=== PATIENT | female | born 1970 | race Caucasian/White ===

== ENCOUNTER 2017-07-15 14:04 | Emergency (ER) | payer MEDICAID ==
[~2017-07-15] VITALS: Ht 170.2 cm; Wt 121.6 kg
--- OUTSIDE RECORDS SUMMARY | ~2017-07-15 | XMS | Clinical Summary ---
Demographics + + + | Address | [address] | | | [place] [address] | + + + | Home Phone [...] + | KRANTHI MONTEJO | ECON | [address] | | | | | [address], | | | | | [place] [address] | | + + + + + Care Team Providers + +------+ + | Care Special Officer Automat Name | Role | Phone | + +------+ + | Fior Arreola PA-C | PP | | + +------+ + Source Comments MANJUL[facility] Allergies + + + + + + [...] Patient ID: Stephany Sanchez 1970Care Plan Updated: 7-6-20Mxxoek: Winnie Morales, | | RNTotal Time of Visit:PCP: Saul Kelly, JACK MORALES, RNJULISA | | YANDEL WEBB MDBASSEL BEITINJANEH, GENO BROWN, AN[facility]BEBETHESDA [facility] | | GENO CEBALLOS, GENO KAPLAN, ANPDR | | URIEL [facility] Care Management Diagnosis: Care CoordinationPatient [...] Eff To | | Jessica Status 1 BARREL CAP SETTER MEDIC*/BARREL CAP SETTER PACIF* STEPHANY SANCHEZ Verified Patient is | [...] | as advised by her therapist at [facility] feels this is helping with her depression [...] resources | | 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 Care | | plan updated and reviewed with pt and PCP. Utilization: High ED utilization throughout | | the [facility] Psychosocial Needs: Patient lives with her partner of 17 years | | [place]. Pt travels with her partner throughout | [...] we are still waiting for | | [employer] to fund Vegi Vouchers but we [...] will work on having Vegi vouchers at [facility] with Fior on 01-22-17 and pt | [...] Andrew rncm09-23-16 T/C 07-20-16 1. T/C to [facility] and [facility] advises that | | [...] continue to pend | | but that [facility] has reassured me that they are close [...] when she and her will be in [place] working, refuses | | referral to Endocrinology. [...] CFL and PCP regularly Pt scheduled with [facility] Pulmonology 03-17-16 @ | | 11:11pu07-3-74: Pt scheduled with [facility] 04-23-16 @10:24kr64-74-90 Pt scheduled with | | podiatry and [...] Arreola [facility] Family Medicine [phone] [facility] | | MED 03/22/2017 2:30 PM Scot Smith [facility] Cardiology [phone] | | [facility] CARDIO NOTE TO INPATIENT [...] oxygen.Winnie Morales RNNurse Care ManagerMid | | [facility]: Next out reach: 08-05-17 Vegi [...] when she and her will be in [place] working, refuses referral to Endocrinology. Reviewe d [...] regularly | | | |Pt scheduled with [facility] Pulmonology 03-17-16 @ 11:15am | | | |02-10-16: Pt scheduled with [facility] 04-23-16 @10:30am | | | |01-30-16 [...] Arreola [facility] Family Medicine [phone] [facility] FAM MED | | 03/22/2017 2:30 PM Scot Smith [facility] Cardiology [phone] [facility] CA RDIO | [...] | | |Winnie Morales RN | |Nurse Director Case Management | |[facility] | |Desk: | | | |Next out [...] | Patient | | Fior Arreola, | seed buyer | | 2018 | Outreach | | [...] + | 05/03/ | Refill | | Firo Arreola, | Refill Request | | 2017 [...] Narrative | + + | [address] [place] [address] | | [place] [address] | | [phone] Name: | | STEPHANY SANCHEZ Phys: LEXY HALEY : | | 1970 Sex: F CSN: [id number] MR# [id number] | | Exam Date: 06/04/2017 EXAM: US [...] MD Transcribed Date/Time: 06/04/2017 13:54 | | Concrete Paver: FLUENCY | + + + + | Procedure Note | + + | Interface, Radiology Results - 06/04/2017 1:59 PM PST [address] | | [address] [place] [address] | | Name: STEPHANY SANCHEZ Phys: TERALEXY : 1970 Sex: F | | CSN: [id number] MR# [id number] Exam Date: 06/04/2017 EXAM:US DOPPLER LOWER | [...] | | |Transcribed Date/Time: 06/04/2017 13:54 | |Concrete Paver: IVÁN | | | | | | | + + ED INFORMATION EXCHANGE (06/04/2017 12:06 PM) + + + + | Component | Value | Ref Range | + + + + | SWATI PID | [id number] ([id number]) | | + + + + + + + | Specimen | Performing Laboratory | + + + | | [facility] [employer] [address] | | | [address] [place] [address] | + + + + + | Narrative | + + | Guidelines Source: [facility] Guidelines Date: 12/19/2015 Care | | [...] Substances (E-104.00). - Please | | utilize [facility] website to view prescription acquisition. - Restrict use of | | opioids in ED to only obvious trauma or severe medical issues - Please adoption counselor | | the patient about appropriate use of health care services as warranted - | | Encourage patient to establish and then seek care from their community provider to | | improve continuity of care. 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 | | [place] Emergency [address]. POSS BLOOD CLOT TO R LEG, SWOLLEN/PAINFUL 03/13/2017 | | 13[facility]. | | [place] Emergency -Periapical abscess without sinus | | | | -Nicotine | | dependence, cigarettes, uncomplicated | | | | -OTHER | | SPECIFIED DISORDERS OF TEETH AND SUPPORTING | | | | STRUCTURES | | | | -Dental caries, | | unspecified ED VISIT COUNT (12 MO.) Visits Location | | ------ --------- 1 [facility] 2 [facility] | | [facility]. 1 [facility]. 1 [facility] | | [facility] 1 [facility] 1 [facility]. | | [facility] 1 [facility] H. 8 Total Note: Visits | | indicate total known visits. | | CARE | | PROVIDERS | | Name | | Phone Type Service | | Dates | | ---- | | | | ----- ---- [facility] | | [facility] | | Unknown Primary Care Unknown - Current FIOR Dale | | [place] at [facility] | | GROUP Unknown Primary | | Care Unknown - Current FIOR ARREOLA at [facility] | | [place] [phone] Primary Care 01/11/2015 - | | [facility] | | [phone] Primary Care 08/22/2011 | | - Current RENNY MARI at [facility] PHYSICIAN | | SERVICES [phone] Specialist 09/11/2013 - | | Current NONSTAFF [...] | + + + | Swab | [facility] [address] [place] [address] [place], | | | [place] [address] | + + + ALBUMIN URINE, RANDOM [...] | + + + | Urine | [address] [facility] | | | [place] [address] | + + + + + | [...] | >60 | >60 mL/min | | [place] | | | + +---------+ + | EGFR NON | >60 | >60 mL/min | | -[place]OL[place] | | | + +---------+ + | ANION GAP | 11 (L) | 12 - 20 mmol/L | + +---------+ + | FASTING 8 HOURS [place] | No | | | MORE? | | | + +---------+ + + + + | Specimen | Performing Laboratory | + + + | Blood | [address] [facility] | | | [place] [address] | + + + LIPID SET (TRIG, [...] | + + + | Blood | [address] [facility] | | | [place] [address] | + + + + + | [...] | + + + | Blood | [address] [facility] | | | [place] [address] | + + + + + | Narrative | + + | Glycohemoglobin Recommended Diabetic Ranges per DCCT & ADA: Normal | | Range: <6% Good | | Control: <7% Additional action | | suggested: >8% Non-Diabetic | | Ranges: 4-6% Media Coordinator's Glycohemoglobin Diabetic | | Ranges: Normal Range: 4.0-6.0% | | Good Control: 6.0-8.0% | | Poor Control: >8.0% | + + from Last 3 Months
--- OUTSIDE RECORDS SUMMARY | ~2017-07-15 | XMS | Encounter Summary ---
Demographics + + + | Address | [address] | | | [place] [address] | + + + | Home Phone | | + + + | Preferred Language | Unknown | + + + | Marital Status | Single | + + + | Mosque Affiliation | NRP | + + + | Race | White | + + + | Ethnic Group | Not or | + + + Author + + + | Author | [facility] | + + + | Organization | [facility] | + + + | Address | Unknown | + + + | Phone | Unavailable | + + + Support + + + + + | Name | Relationship | Address | Phone | + + + + + | KRANTHI MONTEJO | ECON | [address] | | | | | [address], | | | | | [place] [address] | | + + + + + Care Team Providers + +------+ + | Care Food Cashier Name | Role | Phone | + [...] | | | | | [address] [place], | [place] | | | | | [place] [address] | [address] | | | | | [phone] | [phone] | | | | | | | [...]
--- OUTSIDE RECORDS SUMMARY | ~2017-07-15 | XMS | Clinical Summary ---
Demographics + + + | Address | [address] [place] [address] | | | [place] [address] | + + + | Home Phone | | + + + | Preferred Language | Unknown | + + + | Marital Status | Single | + + + | Caodaism Affiliation | Unknown | + + + | Race | Unknown | + + + | Ethnic Group | Unknown | + + + Author + + + | Author | [facility] | | | and [place] | + + + | Organization | [facility] | | | and [...] Team Providers + +------+ + | Care Dispatcher Radioactive Waste Disposal Name | Role | Phone | + [...] | [employer] | xxxxxxxx | [employer] | [phone] | | STATE | ID OUT [...] | Self | [birth year] | Home: | [address] | | | al/Fam | | 1969 | [phone] | [address] [place] | | | christina | | | [address] | [place] [address] | + +--------+ +--------+ + +
--- OUTSIDE RECORDS SUMMARY | ~2017-07-15 | XMS | Encounter Summary ---
Demographics + + + | Address | [address] [address] | | | [place] [address] | + + + | Home Phone [...] + | KRANTHI MONTEJO | ECON | [address] | | | | | [address], | | | | | [place] [address] | | + + + + + Care Team Providers + +------+ + | Care Generator Operator Name | Role | Phone | [...] | | | | | [address] [place], | [place] | | | | | [place] [address] | [address] | | | | | [phone] | [phone] | | | | | | | [...]
--- OUTSIDE RECORDS SUMMARY | ~2017-07-15 | XMS | Encounter Summary ---
Demographics + + + | Address | [address] | | | [place] [address] | + + + | Home Phone | | + + + | Preferred Language | Unknown | + + + | Marital Status | Single | + + + | Judaism Affiliation | NRP | + + + [...] + | KRANTHI MONTEJO | ECON | [address] | | | | | [address], | | | | | [place] [address] | | + + + + + Care Team Providers + +------+ + | Care Chimney Builder Name | Role | Phone | + [...] mg | | | | [address] [place], | [place], [place] | , [facility] , | | | | [place] [address] | [phone] | Gabapentin 300 mg) | | | | [phone] | [phone] | | | | | | | [...]
--- OUTSIDE RECORDS SUMMARY | ~2017-07-15 | XMS | Encounter Summary ---
Demographics + + + | Address | [address] | | | [place] [address] | + + + | Home Phone | | + + + | Preferred Language | Unknown | + + + | Marital Status | Single | + + + | Scientologist Affiliation | NRP | + + + | Race | White | + + + | Ethnic Group | Not or | + + + Author + + + | Author | [facility] | + + + | Organization | [facility] | + + + | Address | Unknown | + + + | Phone | Unavailable | + + + Support + + + + + | Name | Relationship | Address | Phone | + + + + + | KRANTHI MONTEJO | ECON | [address] | | | | | [address], | | | | | [place] [address] | | + + + + + Care Team Providers + +------+ + | Care Hay Chopper Name | Role | Phone | + [...] - Medication | | | | [place], | [place], [place] | (freestyle test | | | | [place] [address] | [address] | strips) | | | | [phone] | [phone] | | | | | | | [...]
--- OUTSIDE RECORDS SUMMARY | ~2017-07-15 | XMS | Encounter Summary ---
Demographics + + + | Address | [address] [place] [address] | | | [place] [address] | + + + | Home Phone | | + + + | Preferred Language | Unknown | + + + | Marital Status | Single | + + + | Adventist Affiliation | NRP | + + + | Race | White | + + + | Ethnic Group | Not or | + + + Author + + + | Author | [facility] | + + + | Organization | [facility] | + + + | Address | Unknown | + + + | Phone | Unavailable | + + + Support + + + + + | Name | Relationship | Address | Phone | + + + + + | KRANTHI MONTEJO | ECON | [address] | | | | | [address], | | | | | [place] [address] | | + + + + + Care Team Providers + +------+ + | Care Film Producer Name | Role | Phone | + [...] | | | | | [address] [place], | [place], [place] | | | | | [place] [address] | [address] | | | | | [phone] | [phone] | | | | | | | [...]
--- OUTSIDE RECORDS SUMMARY | ~2017-07-15 | XMS | Encounter Summary ---
Demographics + + + | Address | [address] | | | [place] [address] | + + + | Home Phone | | + + + | Preferred Language | Unknown | + + + | Marital Status | Single | + + + | Yarsanism Affiliation | NRP | + + + | Race | White | + + + | Ethnic Group | Not or | + + + Author + + + | Author | [facility] | + + + | Organization | [facility] | + + + | Address | Unknown | + + + | Phone | Unavailable | + + + Support + + + + + | Name | Relationship | Address | Phone | + + + + + | KRANTHI MONTEJO | ECON | [address] | | | | | [address], | | | | | [place] [address] | | + + + + + Care Team Providers + +------+ + | Care Cable Inspector Name | Role | Phone | [...] | | Metabolism | Uncontrolled | [address] | [address] | | | | | type [address] | [address] | | | | | diabetes | [place], | [place], | | | | | mellitus | [place] | [place] [address] | | | | | without | [address] | Phone: | | | | | complication | Phone: | [phone] | | | | | , with | [phone] | Fax: | | | | | long-term | Fax: | [phone] | | | | | current use | [phone] | | | | | | of insulin | | | | | | | ([facility]) | | | | | [...] mellitus | | | | [address] [place], | [place], [place] | without | | | | [place] [address] | [address] | complication, with | | | | [phone] | [phone] | long-term current | | | | [...] Instructions: Thank you for meeting with the diabetes trainer today. These are the healthy lifestyle goa [...] diabetes education visit. Carleen Alvarez, KRISTEN, CDE Mobile Marketing Manager [facility] 1. Uncontrolled type 2 diabetes mellitus without complication, with long-term current use o f insulin ([facility]) Lab work was completed today. [...] Instructions: Thank you for meeting with the diabetes trainer today. These are the healthy lifestyle goa [...] diabetes education visit. Carleen Alvarez RD, CDE Mobile Marketing Manager [facility] 1. Uncontrolled type 2 diabetes mellitus [...] ti me 55 minutes. I, Alyssa Lujan [employer], am functioning as a scribe for Vicente Ordoñez PA-C. I have reviewed and verified the above scribed note of my visit with this patient. Vicente Ordoñez PA-C [facility] [address] [place] [address] Carleen Coleman, RD - 04/22/2017 1:00 PM [...] June to January with her who do D[employer]. She would like to sign up and [...] 50% of the time and documented content. Aircraft Painter Apprentice: Carleen Alvarez RD,CDE Patient's PCP: Vicente Ordoñez [...] Swab | [facility] [address] [place] [address] [place], | | | [place] [address] | + + + in this encounter [...]
--- OUTSIDE RECORDS SUMMARY | ~2017-07-15 | XMS | Encounter Summary ---
Demographics + + + | Address | [address] [place] [address] | | | [place] [address] | + + + | Home Phone | | + + + | Preferred Language | Unknown | + + + | Marital Status | Single | + + + | Oriental Orthodox Affiliation | NRP | + + [...] + | KRANTHI MONTEJO | ECON | [address] | | | | | [address], | | | | | [place] [address] | | + + + + + Care Team Providers + +------+ + | Care Financial Services Counselor Name | Role | Phone | + +------+ + | Nichol Ordoñez PA-C | PCP | | + +------+ + Reason for Visit + + + | Reason | Comments | + + + | tromper | ED Followup | | Call | | + + + Encounter Details +--------+ + + + + | Date | Type | Department | Care Team | Description | +--------+ + + + + | 06/07/ | Patient | [facility] | Nichol Ordoñez, | tromper | | 2018 | Outreach | Medicine [address] | PA-C [address] | Call (ED Followup) | | | | [address] [place], | [place], [place] | | | | | [place] [address] | [address] | | | | | [phone] | [phone] | | | | | | | [...]
--- OUTSIDE RECORDS SUMMARY | ~2017-07-15 | XMS | Encounter Summary ---
Demographics + + + | Address | [address] | | | [place] [address] | + + + | Home Phone [...] Author + + + | Author | [facility] | + + + | Organization | [facility] | + + + | Address | Unknown | + + + | Phone | Unavailable | + + + Support + + + + + | Name | Relationship | Address | Phone | + + + + + | KRANTHI MONTEJO | ECON | [address] | | | | | [address], | | | | | [place] [address] | | + + + + + Care Team Providers + +------+ + | Care Dairy Department Manager Name | Role | Phone | + [...] thigh | | | | [address] [place], | [place], [place] | (Primary Dx); | | | | [place] [address] | [address] | Shoulder | | | | [phone] | [phone] | impingement, right; | | | | [...] Musculoskeletal pain of right thigh (Sartorius = Net Finisher muscle) Pain is muscular. I prescribed diclofenac [...] 2 hours she was told to by wall covering contractor provider. The lows happen in the afternoon [...] Musculoskeletal pain of right thigh (Sartorius = Net Finisher muscle) Pain is muscular. I prescribed diclofenac [...] the growth of yeast. I, Alyssa Lujan [facility], am functioning as a scribe for Nichol Ordoñez PA-C. I have reviewed and verified the above scribed note of my visit with this patient. Nichol Ordoñez PA-C [facility] [address] [place] [address] in this encounter Plan of [...]
--- OUTSIDE RECORDS SUMMARY | ~2017-07-15 | XMS | Clinical Summary ---
Demographics + + + | Address | [address] | | | [place] [address] | + + + | Home Phone | | + + + | Preferred Language | Unknown | + + + | Marital Status | Single | + + + | Temple Affiliation | Unknown | + + + | Race | Unknown | + + + | Ethnic Group | Unknown | + + + Author + + + | Author | [facility] | + + + | Organization | [facility] | + + + | Address | Unknown | + + + | Phone | Unavailable | + + + Support + + +---------+ + | Name | Relationship | Address | Phone | + + +---------+ + | Hardeep Glass | ECON | Unknown | | + + +---------+ + Care Team Providers + +------+ + | Care Manager Health Name | Role | Phone | + +------+ + | [facility] | PP | Unavailable | | Community [...] | | | | | | [place], [place] | | | PACIFI | | | | [address] | | | [facility] | | | [...] | Self | [birth year] | Home: | [address] | | | al/Khari | | 1970 | [phone] [place], | | | [place] | | | [address] | [place] [address] | + +--------+ +--------+ + +
--- OUTSIDE RECORDS SUMMARY | ~2017-07-15 | XMS | Encounter Summary ---
Demographics + + + | Address | [address] [address] | | | [place] [address] | + + + | Home Phone [...] + + | Author | [facility] | + + + | Organization | [facility] | + + + | Address | Unknown | + + + | Phone | Unavailable | + + + Support + + + + + | Name | Relationship | Address | Phone | + + + + + | KRANTHI MONTEJO | ECON | [address] | | | | | [address], | | | | | [place] [address] | | + + + + + Care Team Providers + +------+ + | Care Rubberizing Mechanic Name | Role | Phone | + [...] | | 2017 | | Department at [facility] | [place] [address] | | | | | Hospital [address] | [place], [place] | | | | | Street The | [address] | | | | | [place], [place] | [phone] | | | | | [address] | | | | | | [phone] | | | +--------+ + + + [...] Laboratory | + + + | | [facility] DEPARTMENT OF RADIOLOGY | + + + + + | Narrative | + + | [address] | | [place] [address] | | [phone] Name: | | STEPHANY SANCHEZ Phys: LEXY HALEY : | | 1970 Sex: F CSN: [id number] MR# [id number] | | Exam Date: 06/04/2017 EXAM: US [...] MD Transcribed Date/Time: 06/04/2017 13:54 | | Drying Room Attendant: FLUENCY | + + + + | Procedure Note | + + | Interface, Radiology Results - 06/04/2017 1:59 PM PST [address] | | [place] [address] | | Name: STEPHANY SANCHEZ Phys: LEXY HALEY : 1970 Sex: F | | CSN: [id number] MR# [id number] Exam Date: 06/04/2017 EXAM:US DOPPLER LOWER | [...] | | |Transcribed Date/Time: 06/04/2017 13:54 | |Drying Room Attendant: FLUENCY | | | | | | | + + ED INFORMATION EXCHANGE (06/04/2017 12:06 PM) + + + + | Component | Value | Ref Range | + + + + | SWATI PID | [id number] ([id number]) | | + + + + + + + | Specimen | Performing Laboratory | + + + | | [facility] [employer] [address] | | [address] [place] [address] | + + + + + | Narrative | + + | Guidelines Source: [facility] Guidelines Date: 12/19/2015 Care | | Recommendation: - This patient has been identified as having >5 ED | | visits within the past year at EDs in [facility]. - Recommend no routine | [...] Substances (E-104.00). - Please | | utilize [facility] website to view prescription acquisition. 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 | | [place] Emergency [address]. POSS BLOOD CLOT TO R LEG, SWOLLEN/PAINFUL 03/13/2017 | | 13:30 [facility] [place]. | | [place] Emergency -Periapical abscess without sinus | | | | -Nicotine | | dependence, cigarettes, uncomplicated | | | | -OTHER | | SPECIFIED DISORDERS OF TEETH AND SUPPORTING | | | | STRUCTURES | | | | -Dental caries, | | unspecified ED VISIT COUNT (12 MO.) Visits Location | | ------ --------- 1 [facility]. 2 [facility] | | [facility]. 1 [facility] 1 [facility] | | [facility] H 1 [facility] 1 [facility] | | [facility] 1 [facility] 8 Total Note: Visits | | indicate total known visits. | | CARE | | PROVIDERS | | Name | | Phone Type Service | | Dates | | ---- | | | | ----- ---- LEGACY | | [facility] | | Unknown Primary Care Unknown - Current FIOR [place] | | [facility] | | GROUP Unknown Primary | | Care Unknown - Current FIOR [facility] at [facility] | | [place] [phone] Primary Care 01/11/2015 - | | Current [facility] | | [phone] Primary Care 08/22/2011 | | - Current RENNY MARI at [facility] | | SERVICES [phone] Specialist 09/11/2013 - | | Current NONSTAFF | | PHYSICIAN | | Unknown Primary Care Unknown - Current | + + in this encounter Visit Diagnoses + + | Diagnosis | + + | Musculoskeletal pain of right thigh - Primary | + +
--- OUTSIDE RECORDS SUMMARY | ~2017-07-15 | XMS | Encounter Summary ---
Demographics + + + | Address | [address] [place] [address] | | | [place] [address] | + + + | Home Phone [...] Author + + + | Author | [facility] | + + + | Organization | [facility] | + + + | Address | Unknown | + + + | Phone | Unavailable | + + + Support + + + + + | Name | Relationship | Address | Phone | + + + + + | KRANTHI MONTEJO | ECON | [address] | | | | | [address], | | | | | [place] [address] | | + + + + + Care Team Providers + +------+ + | Care Fabric Cutter Name | Role | Phone | [...] 06/08/ | Telephone | [facility] | AerchigaAnnita FNP | Hypoglycemia | | 2018 | | Medical Clinic | [address] | | | | | Internal Medicine | [place], [place] | | | | | [address] | [address] | | | | | [place], [place] | [phone] | | | | | [address] | | | | | | [phone] | | | +--------+ + + + [...]
--- OUTSIDE RECORDS SUMMARY | ~2017-07-15 | XMS | Encounter Summary ---
Demographics + + + | Address | [address] [place] [address] | | | [place] [address] | + + + | Home Phone | | + + + | Preferred Language | Unknown | + + + | Marital Status | Single | + + + | Latter-Day Affiliation | NRP | + + + [...] + | KRANTHI MONTEJO | ECON | [address] | | | | | [address], | | | | | [place] [address] | | + + + + + Care Team Providers + +------+ + | Care Computer Analyst Supervisor Name | Role | Phone | + [...] - Medication | | | | [address] [place], | [place], [place] | (freestyle test | | | | [place] [address] | [address] | strips) | | | | [phone] | [phone] | | | | | | | [...]
--- OUTSIDE RECORDS SUMMARY | ~2017-07-15 | XMS | Encounter Summary ---
Demographics + + + | Address | [address] [address] | | | [place] [address] | + + + | Home Phone | | + + + | Preferred Language | Unknown | + + + | Marital Status | Single | + + + | Jewish Affiliation | NRP | + + + [...] + | KRANTHI MONTEJO | ECON | [address] | | | | | [address], | | | | | [place] [address] | | + + + + + Care Team Providers + +------+ + | Care Reconciliation Analyst Name | Role | Phone | [...] mg | | | | [address] [place], | [place], [place] | , [facility] , | | | | [place] [address] | [address] | Gabapentin 300 mg) | | | | [phone] | | | | | | | [...]
--- OUTSIDE RECORDS SUMMARY | ~2017-07-15 | XMS | Encounter Summary ---
Demographics + + + | Address | [address] [place] | | | [place] [address] | + + + | Home Phone [...] + | KRANTHI MONTEJO | ECON | [address] | | | | | [address], | | | | | [place] [address] | | + + + + + Care Team Providers + +------+ + | Care Rolled Oats Mill Operator Name | Role | Phone | [...] | | | | | [address] [place], | [place], [place] | | | | | [place] [address] | [address] | | | | | [phone] | [phone] | | | | | | | [...]
--- OUTSIDE RECORDS SUMMARY | ~2017-07-15 | XMS | Encounter Summary ---
Demographics + + + | Address | [address] [place] [address] | | | [place] [address] | + + + | Home Phone | | + + + | Preferred Language | Unknown | + + + | Marital Status | Single | + + + | Caodaism Affiliation | NRP | + + + [...] + | KRANTHI MONTEJO | ECON | [address] | | | | | [address], | | | | | [place] [address] | | + + + + + Care Team Providers + +------+ + | Care Stage Director Name | Role | Phone | [...] | | | | | [address] [place], | [place] | | | | | [place] [address] | [address] | | | | | [phone] | [phone] | | | | | | | [...]
--- OUTSIDE RECORDS SUMMARY | ~2017-07-15 | XMS | Encounter Summary ---
Demographics + + + | Address | [address] [place] [address] | | | [place] [address] | + + + | Home Phone | | + + + | Preferred Language | Unknown | + + + | Marital Status | Single | + + + | Tenriism Affiliation | NRP | + + + | Race | White | + + + | Ethnic Group | Not or | + + + Author + + + | Author | [facility] | + + + | Organization | [facility] | + + + | Address | Unknown | + + + | Phone | Unavailable | + + + Support + + + + + | Name | Relationship | Address | Phone | + + + + + | KRANTHI MONTEJO | ECON | [address] | | | | | [address], | | | | | [place] [address] | | + + + + + Care Team Providers + +------+ + | Care Net Developer Contract Name | Role | Phone | + [...] | | | | | [address] [place], | [place] | | | | | [place] [address] | [address] | | | | | [phone] | [phone] | | | | | | | [...]
--- OUTSIDE RECORDS SUMMARY | ~2017-07-15 | XMS | Encounter Summary ---
Demographics + + + | Address | [address] [address] | | | [place] [address] | + + + | Home Phone [...] + | KRANTHI MONTEJO | ECON | [address] | | | | | [address], | | | | | [place] [address] | | + + + + + Care Team Providers + +------+ + | Care Manager Nursing Name | Role | Phone | + [...] | | Metabolism | Uncontrolled | [address] | | | | | type [address] | | | | | diabetes | [place], | [place], | | | | | mellitus | [place] | [place] [address] | | | | | without | [address] | Phone: | | | | | complication | Phone: | [phone] | | | | | , with | [phone] | Fax: | | | | | long-term | Fax: | [phone] | | | | | current use | [phone] | | | | | | of insulin | | | | | | | ([facility]) | | | | | | | [...] mellitus | | | | [address] [place], | [place], [place] | without | | | | [place] [address] | [address] | complication, with | | | | [phone] | [phone] | long-term current | | | | [...] Instructions: Thank you for meeting with the global marketing operations manager today. These are the healthy lifestyle goa [...] diabetes education visit. Carleen Alvarez, KRISTEN, CDE Public Address Announcer [facility] 1. Uncontrolled type 2 diabetes mellitus without complication, with long-term current use o f insulin ([facility]) Lab work was completed today. We will [...] Instructions: Thank you for meeting with the global marketing operations manager today. These are the healthy lifestyle goa [...] diabetes education visit. Carleen Alvarez RD, CDE Public Address Announcer [facility] 1. Uncontrolled type 2 diabetes [...] ti me 55 minutes. I, Alyssa Lujan TEAM PHYSICIAN, am functioning as a scribe for Vicente Ordoñez PA-C. I have reviewed and verified the above scribed note of my visit with this patient. Vicente Ordoñez PA-C [facility] [address] [place] [address] Carleen Coleman, RD - 04/22/2017 1:00 PM [...] June to January with her who do [employer]. She would like to sign up and [...] 50% of the time and documented content. Passenger Car Cleaning Supervisor: Carleen Alvarez RD,CDE Patient's PCP: Vicente Ordoñez [...] Swab | [facility] [address] [place] [address] [place], | | | [place] [address] | + + + in this encounter [...]
--- OUTSIDE RECORDS SUMMARY | ~2017-07-15 | XMS | Encounter Summary ---
Demographics + + + | Address | [address] [place] [address] | | | [place] [address] | + + + | Home Phone | | + + + | Preferred Language | Unknown | + + + | Marital Status | Single | + + + | Rastafarian Affiliation | NRP | + + + | Race | White | + + + | Ethnic Group | Not or | + + + Author + + + | Author | [facility] | + + + | Organization | [facility] | + + + | Address | Unknown | + + + | Phone | Unavailable | + + + Support + + + + + | Name | Relationship | Address | Phone | + + + + + | KRANTHI MONTEJO | ECON | [address] | | | | | [address], | | | | | [place] [address] | | + + + + + Care Team Providers + +------+ + | Care Truss Builder Name | Role | Phone | [...] | | | | | [address] [place], | [place], [place] | | | | | [place] [address] | [address] | | | | | [phone] | | | | | | | [...] | + + + | Swab | [facility] [address] [place] [address] [place], | | | [place] [address] | + + + in this encounter Visit Diagnoses + + | Diagnosis | + + | Flu-like symptoms | + + | Influenza with other respiratory manifestations | + +"
--- OUTSIDE RECORDS SUMMARY | ~2017-07-15 | XMS | Encounter Summary ---
Demographics + + + | Address | [address] [place] [address] | | | [place] [address] | + + + | Home Phone | | + + + | Preferred Language | Unknown | + + + | Marital Status | Single | + + + | Hoahaoism Affiliation | NRP | + + + [...] + | KRANTHI MONTEJO | ECON | [address] | | | | | [address], | | | | | [place] [address] | | + + + + + Care Team Providers + +------+ + | Care Spa Coordinator Name | Role | Phone | [...] | | | | | [address] [place], | [place] | | | | | [place] [address] | [address] | | | | | [phone] | [phone] | | | | | | | [...]
--- OUTSIDE RECORDS SUMMARY | ~2017-07-15 | XMS | Encounter Summary ---
Demographics + + + | Address | [address] [place] [address] | | | [place] [address] | + + + | Home Phone | | + + + | Preferred Language | Unknown | + + + | Marital Status | Single | + + + | Yazidi Affiliation | NRP | + + + | Race | White | + + + | Ethnic Group | Not or | + + + Author + + + | Author | [facility] | + + + | Organization | [facility] | + + + | Address | Unknown | + + + | Phone | Unavailable | + + + Support + + + + + | Name | Relationship | Address | Phone | + + + + + | KRANTHI MONTEJO | ECON | [address] | | | | | [address], | | | | | [place] [address] | | + + + + + Care Team Providers + +------+ + | Care Sap Hana Architect Name | Role | Phone | + [...] | | | | | [address] [place], | [place] | | | | | [place] [address] | [address] | | | | | [phone] | [phone] | | | | | | | [...]
--- OUTSIDE RECORDS SUMMARY | ~2017-07-15 | XMS | Encounter Summary ---
Demographics + + + | Address | [address] | | | [place] [address] | + + + | Home Phone [...] + | KRANTHI MONTEJO | ECON | [address] | | | | | [address], | | | | | [place] [address] | | + + + + + Care Team Providers + +------+ + | Care Baker Pastry Name | Role | Phone | + [...] | | 2017 | | Department at [facility] | [place] [address] | | | | | Hospital [address] | [place], [place] | | | | | Street The | [address] | | | | | [place], [place] | [phone] | | | | | [address] | | | | | | [phone] | | | +--------+ + + + [...] Laboratory | + + + | | [facility] DEPARTMENT OF RADIOLOGY | + + + + + | Narrative | + + | [address] | | [place] [address] | | [phone] Name: | | STEPHANY SANCHEZ Phys: LEXY HALEY : | | 1970 Sex: F CSN: [id number] MR# [id number] | | Exam Date: 06/04/2017 EXAM: US [...] MD Transcribed Date/Time: 06/04/2017 13:54 | | Windows Consultant: FLUENCY | + + + + | Procedure Note | + + | Interface, Radiology Results - 06/04/2017 1:59 PM PST [address] | | [place] [address] | | Name: STEPHANY SANCHEZ Phys: LEXY HALEY : 1970 Sex: F | | CSN: [id number] MR# [id number] Exam Date: 06/04/2017 EXAM:US DOPPLER LOWER | [...] | | |Transcribed Date/Time: 06/04/2017 13:54 | |Windows Consultant: FLUENCY | | | | | | | + + ED INFORMATION EXCHANGE (06/04/2017 12:06 PM) + + + + | Component | Value | Ref Range | + + + + | SWATI PID | [id number] ([id number]) | | + + + + + + + | Specimen | Performing Laboratory | + + + | | [facility] [employer] [address] | | | [address] [place] [address] | + + + + + | Narrative | + + | Guidelines Source: [facility] Guidelines Date: 12/19/2015 Care | | Recommendation: - This patient has been identified as having >5 ED | | visits within the past year at EDs in [facility]. - Recommend no routine | | medication [...] Substances (E-104.00). - Please | | utilize [facility] website to view prescription acquisition. - Restrict use of | | opioids in ED to only obvious trauma or severe medical issues - Please domestic violence counselor | | the patient about appropriate use of health care services as warranted - | | Encourage patient to establish and then seek care from their community provider to | | improve continuity of care. | | Additional | | care guidelines exist for the following facilities: [facility] ( | | 04/29/2015 ) [facility] ( 01/14/2015 ) [facility] ( 09/03/2014 ) | | Care History Medical/Surgical 11/22/[address] [facility] | | -6 c-sections -Ablations of uterus in 2008 | | -Diabetic Type 2 -Sleep apnea and on CPAP at night | | -Ginny -Appy -COPD -Chronic back pain | | Substance Abuse/Overdose 11/22/[address] 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 | | Depression ED/[facility] VISIT TRACKING (3 MO.) Visit | | Date Location | | City ST Type Dx/Complaint | | -------- | | ------- ---- 06/04/2017 | | 12:05 [facility] [place] | | [place] Emergency [address]. POSS BLOOD CLOT TO R LEG, SWOLLEN/PAINFUL 03/13/2017 | | 13:30 [facility] [place]. | | [place] Emergency -Periapical abscess without sinus | | | | -Nicotine | | dependence, cigarettes, uncomplicated | | | | -OTHER | | SPECIFIED DISORDERS OF TEETH AND SUPPORTING | | | | STRUCTURES | | | | -Dental caries, | | unspecified ED VISIT COUNT (12 MO.) Visits Location | | ------ --------- 1 [facility]. 2 [facility] | | [facility]. 1 [facility] 1 [facility] | | [facility] H 1 [facility] 1 [facility] | | [facility] 1 [facility] 8 Total Note: Visits | | indicate total known visits. | | CARE | | PROVIDERS | | Name | | Phone Type Service | | Dates | | ---- | | | | ----- ---- LEGACY | | [facility] | | Unknown Primary Care Unknown - Current FIOR Dale | | [facility]REOLA at [facility] | | GROUP Unknown Primary | | Care Unknown - Current FIOR ARREOLA at [facility] | | [place] [id number] Primary Care 01/11/2015 - | | Current [facility] | | [phone] Primary Care 08/22/2011 | | - Current RENNY MARI at [facility] PHYSICIAN | | SERVICES [phone] Specialist 09/11/2013 - | | Current NONSTAFF | | PHYSICIAN | | Unknown Primary Care Unknown - Current | + + in this encounter Visit Diagnoses + + | Diagnosis | + + | Musculoskeletal pain of right thigh - Primary | + +
--- OUTSIDE RECORDS SUMMARY | ~2017-07-15 | XMS | Clinical Summary ---
Demographics + + + | Address | [address] | | | [place] [address] | + + + | Home Phone | | + + + | Preferred Language | Unknown | + + + | Marital Status | Single | + + + | Confucianism Affiliation | Unknown | + + + | Race | Unknown | + + + | Ethnic Group | Unknown | + + + Author + + + | Author | [facility]na [facility] | + + + | Organization | [employer] | + + + | Address | Unknown | + + + | Phone | Unavailable | + + + Support + + +---------+ + | Name | Relationship | Address | Phone | + + +---------+ + | Hardeep Glass | ECON | Unknown | | + + +---------+ + Care Team Providers + +------+ + | Care Lot Porter Name | Role | Phone | + +------+ + | [facility] | PP | Unavailable | | [...] | | | | | | [place], [place] | | | PACIFI | | | | [address] | | | [facility]C | | | [...] | Self | [birth year] | Home: | [address] | | | al/Khari | | 1970 | [phone] | [address] [place], | | | [place] | | | [phone] | [place] [address] | + +--------+ +--------+ + +
--- OUTSIDE RECORDS SUMMARY | ~2017-07-15 | XMS | Encounter Summary ---
Demographics + + + | Address | [address] [place] [address] | | | [place] [address] | + + + | Home Phone | | + + + | Preferred Language | Unknown | + + + | Marital Status | Single | + + + | Bahai Affiliation | NRP | + + + [...] + | KRANTHI MONTEJO | ECON | [address] | | | | | [address], | | | | | [place] [address] | | + + + + + Care Team Providers + +------+ + | Care Bath Steward/Stewardess Name | Role | Phone | + [...] | | | | | [address] [place], | [place] | | | | | [place] [address] | [address] | | | | | [phone] | [phone] | | | | | | | [...]
--- OUTSIDE RECORDS SUMMARY | ~2017-07-15 | XMS | Encounter Summary ---
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
--- OUTSIDE RECORDS SUMMARY | ~2017-07-15 | XMS | Encounter Summary ---
Demographics + + + | Address | [address] | | | [place] [address] | + + + | Home Phone [...] + | KRANTHI MONTEJO | ECON | [address] | | | | | [address], | | | | | [place] [address] | | + + + + + Care Team Providers + +------+ + | Care Biotech Production Specialist Name | Role | Phone | + [...] | | | | | [address] [place], | [place], [place] | | | | | [place] [address] | [address] | | | | | [phone] | [phone] | | | | | | | [...]
--- OUTSIDE RECORDS SUMMARY | ~2017-07-15 | XMS | Clinical Summary ---
Demographics + + + | Address | [address] | | | [place] [address] | + + + | Home Phone [...] + | KRANTHI MONTEJO | ECON | [address] | | | | | [address], | | | | | [place] [address] | | + + + + + Care Team Providers + +------+ + | Care Rhinologist Name | Role | Phone | + +------+ + | Fior Arreola PA-C | PP | | + +------+ + Source Comments [facility] InPatient.[facility]ly [facility] Allergies + + + + + + [...] Patient ID: Stephany Sanchez 1970Care Plan Updated: 5-2-23Emxemx: Winnie Morales, | | RNTotal Time of Visit:PCP: Saul Kelly, JACK MORALES, RNJULISA | | YANDEL WEBB MDBASSEL BEITINJANEH, GENO BROWN, ANPBET[facility] | | GENO CEBALLOS, GENO KAPLAN, ANPDR | | [facility] Care Management Diagnosis: Care CoordinationPatient [...] Eff To | | Jessica Status 1 [facility] MEDIC*/[facility] PACIF* STEPHANY SANCHEZ Verified Patient is | [...] | as advised by her therapist at [facility] feels this is helping with her depression [...] resources | | is working with a sheep killer for SSI and depends on rides to medical appointments. Care | | plan updated and reviewed with pt and PCP. Utilization: High ED utilization throughout | | the [facility] Psychosocial Needs: Patient lives with her partner of 17 years | | [place]. Pt travels with her partner throughout | [...] we are still waiting for | | [place] [employer] to fund Vegi Vouchers but we [...] will work on having [facility] vouchers [facility] with Fior on 01-22-17 and pt | [...] Andrew rncm09-23-16 T/C 07-20-16 1. T/C to [facility] and [facility] advises that | | [...] continue to pend | | but that [facility] has reassured me that they are close [...] when she and her will be in [place] working, refuses | | referral to Endocrinology. [...] [facility] Pulmon[facility] 03-17-16 @ | | 11:50mu60-1-01: Pt scheduled with [facility] 04-23-16 @10:63jt25-77-53 Pt scheduled with | | podiatry and [...] | Center 02/15/2017 4:00 PM Fior Arreola [facility] Family Medicine [phone] [facility] | | MED 03/22/2017 2:30 PM [facility] Cardiology [phone] | | [facility] CARDIO NOTE TO INPATIENT [...] oxygen.Winnie Morales RNNurse Care ManagerMid | | [facility]: Next out reach: 08-05-17 Vegi Vouchers, If [...] when she and her will be in [place] working, refuses referral to Endocrinology. Reviewe d [...] | | | |02-10-16: Pt scheduled with [facility] 04-23-16 @10:30am | | | |01-30-16 Pt scheduled with podiatry and [facility] surgical. 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 | | 2018 | Outreach | | [...] Laboratory | + + + | | [facility] DEPARTMENT OF RADIOLOGY | + + + + + | Narrative | + + | [address] [place] [address] | | [place] [address] | | [phone] Name: | | STEPHANY SANCHEZ Phys: LEXY HALEY : | | 1970 Sex: F CSN: [id number] MR# [id number] | | Exam Date: 06/04/2017 EXAM: US [...] Villasenor MD | | Electronically signed by: Bbo Villasenor MD Transcribed Date/Time: 06/04/2017 13:54 | | Meat Loiner: FLUENCY | + + + + | Procedure Note | + + | Interface, Radiology Results - 06/04/2017 1:59 PM PST [address] | | [address] [place] [address] | | Name: STEPHANY SANCHEZ Phys: TERALEXY : 1970 Sex: F | | CSN: [id number] MR# [id number] Exam Date: 06/04/2017 EXAM:US DOPPLER LOWER | [...] | | |Transcribed Date/Time: 06/04/2017 13:54 | |Meat Loiner: IVÁN | | | | | | | + + ED INFORMATION EXCHANGE (06/04/2017 12:06 PM) + + + + | Component | Value | Ref Range | + + + + | SWATI PID | [id number] ([id number]) | | + + + + + + + | Specimen | Performing Laboratory | + + + | | [facility] [employer] [address] | | | [address] [place] [address] | + + + + + | Narrative | + + | Guidelines Source: [facility] Guidelines Date: 12/19/2015 Care | | Recommendation: - This patient has been identified as having >5 ED | | visits within the past year at EDs in [facility]. - Recommend no routine | | [...] Substances (E-104.00). - Please | | utilize [facility] website to view prescription acquisition. - Restrict use of | | opioids in ED to only obvious trauma or severe medical issues - Please student support counselor | | the patient about appropriate use of health care services as warranted - | | Encourage patient to establish and then seek care from their community provider to | | improve continuity of care. 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 VISIT TRACKING (3 MO.) Visit | | Date Location | | City ST Type Dx/Complaint | | -------- | | ------- ---- 06/04/2017 | | 12:05 [facility] [place]. | | [place] Emergency [address]. POSS BLOOD CLOT TO R LEG, SWOLLEN/PAINFUL 03/13/2017 | | 13[facility]. | | [place] Emergency -Periapical abscess without sinus | | | | -Nicotine | | dependence, cigarettes, uncomplicated | | | | -OTHER | | SPECIFIED DISORDERS OF TEETH AND SUPPORTING | | | | STRUCTURES | | | | -Dental caries, | | unspecified ED VISIT COUNT (12 MO.) Visits Location | | ------ --------- 1 [facility] 2 [facility] | | [facility]. 1 [facility]. 1 [facility] | | [facility] 1 [facility] 1 [facility]. | | [facility] 1 [facility] H. 8 Total Note: Visits | | indicate total known visits. | | CARE | | PROVIDERS | | Name | | Phone Type Service | | Dates | | ---- | | | | ----- ---- [facility] | | [facility] | | Unknown Primary Care Unknown - Current FIOR [place] | | [place] [facility] | | GROUP Unknown Primary | | Care Unknown - Current FIOR [facility]REOLA at [facility] | | [place] [phone] Primary Care 01/11/2015 - | | Current [facility] | | [id number] Primary Care 08/22/2011 | | - Current RENNY MARI at [facility] PHYSICIAN | | SERVICES [phone] Specialist 09/11/2013 - | | Current NONSTAFF [...] [facility] [address] [place] [address] [place], | | | [place] [address] | + + + ALBUMIN URINE, RANDOM [...] | + + + | Urine | [address] [facility] | | | [place] [address] | + + + + + | [...] | >60 | >60 mL/min | | SERBIAN | | | + +---------+ + | EGFR NON | >60 | >60 mL/min | | -SERBIAN | | | + +---------+ + | ANION GAP | 11 (L) | 12 - 20 mmol/L | + +---------+ + | FASTING 8 HOURS [place] | No | | | MORE? | | | + +---------+ + + + + | Specimen | Performing Laboratory | + + + | Blood | [address] [facility] | | | [place] [address] | + + + LIPID SET (TRIG, [...] | + + + | Blood | [address] [facility] | | | [place] [address] | + + + + + | [...] | + + + | Blood | [address] [facility] | | | [place] [address] | + + + + + | Narrative | + + | Glycohemoglobin Recommended Diabetic Ranges per DCCT & ADA: Normal | | Range: <6% Good | | Control: <7% Additional action | | suggested: >8% Non-Diabetic | | Ranges: 4-6% Automatic Dry St[employer] Operator's Glycohemoglobin Diabetic | | Ranges: Normal Range: 4.0-6.0% | | Good Control: 6.0-8.0% | | Poor Control: >8.0% | + + from Last 3 Months
--- OUTSIDE RECORDS SUMMARY | ~2017-07-15 | XMS | Encounter Summary ---
Demographics + + + | Address | [address] [place] [address] | | | [place] [address] | + + + | Home Phone | | + + + | Preferred Language | Unknown | + + + | Marital Status | Single | + + + | Lutheran Affiliation | NRP | + + + [...] + | KRANTHI MONTEJO | ECON | [address] | | | | | [address], | | | | | [place] [address] | | + + + + + Care Team Providers + +------+ + | Care School Program Director Name | Role | Phone | + +------+ + | iNchol Ordoñez PA-C | PCP | | + [...] (omeprazole) | | | | [address] [place], | [place], [place] | | | | | [place] [address] | [address] | | | | | [phone] | | | | | | | [...]
--- OUTSIDE RECORDS SUMMARY | ~2017-07-15 | XMS | Encounter Summary ---
Demographics + + + | Address | [address] [place] | | | [place] [address] | + + + | Home Phone | | + + + | Preferred Language | Unknown | + + + | Marital Status | Single | + + + | Protestant Affiliation | NRP | + + + [...] + | KRANTHI MONTEJO | ECON | [address] | | | | | [address], | | | | | [place] [address] | | + + + + + Care Team Providers + +------+ + | Care Clinical Data Management Director Name | Role | Phone | [...] | | | | | [address] [place], | [place], [place] | | | | | [place] [address] | [address] | | | | | [phone] | [phone] | | | | | | | [...]
--- OUTSIDE RECORDS SUMMARY | ~2017-07-15 | XMS | Encounter Summary ---
Demographics + + + | Address | [address] [place] [address] | | | [place] [address] | + + + | Home Phone [...] + | KRANTHI MONTEJO | ECON | [address] | | | | | [address], | | | | | [place] [address] | | + + + + + Care Team Providers + +------+ + | Care Seasoning Mixer Name | Role | Phone | + [...] | | | | | [address] [place], | [place] | | | | | [place] [address] | [address] | | | | | [phone] | [phone] | | | | | | | [...]
--- OUTSIDE RECORDS SUMMARY | ~2017-07-15 | XMS | Encounter Summary ---
Demographics + + + | Address | [address] [place] [address] | | | [place] [address] | + + + | Home Phone [...] + | KRANTHI MONTEJO | ECON | [address] | | | | | [address], | | | | | [place] [address] | | + + + + + Care Team Providers + +------+ + | Care House Designer Name | Role | Phone | + [...] | | | | | [address] [place], | [place] | | | | | [place] [address] | [address] | | | | | [phone] | [phone] | | | | | | | [...]
--- OUTSIDE RECORDS SUMMARY | ~2017-07-15 | XMS | Encounter Summary ---
Demographics + + + | Address | [address] [address] | | | [place] [address] | + + + | Home Phone [...] + | KRANTHI MONTEJO | ECON | [address] | | | | | [address], | | | | | [place] [address] | | + + + + + Care Team Providers + +------+ + | Care Hot Mill Worker Name | Role | Phone | + [...] 2018 | | Medical Clinic | [address] | | | | | Internal Medicine | [place], [place] | | | | | [address] | [address] | | | | | [place], [place] | [phone] | | | | | [address] | | | | | | [phone] | | | +--------+ + + + [...]
--- OUTSIDE RECORDS SUMMARY | ~2017-07-15 | XMS | Encounter Summary ---
Demographics + + + | Address | [address] [address] | | | [place] [address] | + + + | Home Phone [...] Author + + + | Author | [facility] | + + + | Organization | [facility] | + + + | Address | Unknown | + + + | Phone | Unavailable | + + + Support + + + + + | Name | Relationship | Address | Phone | + + + + + | KRANTHI MONTEJO | ECON | [address] | | | | | [address], | | | | | [place] [address] | | + + + + + Care Team Providers + +------+ + | Care Field Crop Farm Worker Name | Role | Phone | [...] and | | | | [address] [place], | [place], [place] | cyclobenzaprine) | | | | [place] [address] | [address] | | | | | [phone] | [phone] | | | | | | | [...]
--- OUTSIDE RECORDS SUMMARY | ~2017-07-15 | XMS | Encounter Summary ---
Demographics + + + | Address | [address] | | | [place] [address] | + + + | Home Phone | | + + + | Preferred Language | Unknown | + + + | Marital Status | Single | + + + | Gnosticist Affiliation | NRP | + + + [...] + | KRANTHI MONTEJO | ECON | [address] | | | | | [address], | | | | | [place] [address] | | + + + + + Care Team Providers + +------+ + | Care Warehouse Manager Name | Role | Phone | [...] and | | | | [address] [place], | [place], [place] | cyclobenzaprine) | | | | [place] [address] | [address] | | | | | [phone] | [phone] | | | | | | | [...]
--- OUTSIDE RECORDS SUMMARY | ~2017-07-15 | XMS | Encounter Summary ---
Demographics + + + | Address | [address] [place] [address] | | | [place] [address] | + + + | Home Phone | | + + + | Preferred Language | Unknown | + + + | Marital Status | Single | + + + | Yarsani Affiliation | NRP | + + + | Race | White | + + + | Ethnic Group | Not or | + + + Author + + + | Author | [facility] | + + + | Organization | [facility] | + + + | Address | Unknown | + + + | Phone | Unavailable | + + + Support + + + + + | Name | Relationship | Address | Phone | + + + + + | KRANTHI MONTEJO | ECON | [address] | | | | | [address], | | | | | [place] [address] | | + + + + + Care Team Providers + +------+ + | Care Carpenter'S Helper Name | Role | Phone | + [...] | complication, with | | | | [address] | | long-term current | | | | [phone] | | use of insulin | | [...] | + + + | Blood | [address] [facility] | | | [place] [address] | + + + + + | [...] | + + + | Urine | [address] [facility] | | | [place] [address] | + + + + + | [...] | >60 | >60 mL/min | | TAIWANESE | | | + +---------+ + | EGFR NON | >60 | >60 mL/min | | -TAIWANESE | | | + +---------+ + | ANION GAP | 11 (L) | 12 - 20 mmol/L | + +---------+ + | FASTING 8 HOURS [place] | No | | | MORE? | | | + +---------+ + + + + | Specimen | Performing Laboratory | + + + | Blood | [facility] | | | [place] [address] | + + + HEMOGLOBIN A1C, BLOOD [...] | + + + | Blood | [address] [facility] | | | [place] [address] | + + + + + | Narrative | + + | Glycohemoglobin Recommended Diabetic Ranges per DCCT & ADA: Normal | | Range: <6% Good | | Control: <7% Additional action | | suggested: >8% Non-Diabetic | | Ranges: 4-6% [employer]'s Glycohemoglobin Diabetic | | Ranges: Normal Range: [...]
--- OUTSIDE RECORDS SUMMARY | ~2017-07-15 | XMS | Encounter Summary ---
Demographics + + + | Address | [address] [place] [place] [address] | | | [place] [address] | + + + | Home Phone [...] + | KRANTHI MONTEJO | ECON | [address] | | | | | [address], | | | | | [place] [address] | | + + + + + Care Team Providers + +------+ + | Care Chief Substation Operator Name | Role | Phone | [...] | | | | | [address] [place], | [place], [place] | | | | | [place] [address] | [address] | | | | | [phone] | [phone] | | | | | | | [...]
--- OUTSIDE RECORDS SUMMARY | ~2017-07-15 | XMS | Encounter Summary ---
Demographics + + + | Address | [address] [place] [address] | | | [place] [address] | + + + | Home Phone [...] + | KRANTHI MONTEJO | ECON | [address] | | | | | [address], | | | | | [place] [address] | | + + + + + Care Team Providers + +------+ + | Care Manager Mac Name | Role | Phone | + [...] | | | | | [address] [place], | [place] | | | | | [place] [address] | [address] | | | | | [phone] | [phone] | | | | | | | [...]
--- OUTSIDE RECORDS SUMMARY | ~2017-07-15 | XMS | Encounter Summary ---
Demographics + + + | Address | [address] [place] [address] | | | [place] [address] | + + + | Home Phone | | + + + | Preferred Language | Unknown | + + + | Marital Status | Single | + + + | Episcopal Affiliation | NRP | + + + | Race | White | + + + | Ethnic Group | Not or | + + + Author + + + | Author | [facility] | + + + | Organization | [facility] | + + + | Address | Unknown | + + + | Phone | Unavailable | + + + Support + + + + + | Name | Relationship | Address | Phone | + + + + + | KRANTHI MONTEJO | ECON | [address] | | | | | [address], | | | | | [place] [address] | | + + + + + Care Team Providers + +------+ + | Care Last Turner Name | Role | Phone | + [...] | | | | | [address] [place], | [place] | | | | | [place] [address] | [address] | | | | | [phone] | [phone] | | | | | | | [...]
--- OUTSIDE RECORDS SUMMARY | ~2017-07-15 | XMS | Encounter Summary ---
Demographics + + + | Address | [address] | | | [place] [address] | + + + | Home Phone [...] + | KRANTHI MONTEJO | ECON | [address] | | | | | [address], | | | | | [place] [address] | | + + + + + Care Team Providers + +------+ + | Care District Claims Manager Name | Role | Phone | [...] (omeprazole) | | | | [address] [place], | [place], [place] | | | | | [place] [address] | [address] | | | | | [phone] | [phone] | | | | | | | [...]
--- OUTSIDE RECORDS SUMMARY | ~2017-07-15 | XMS | Encounter Summary ---
Demographics + + + | Address | [address] [place] [address] | | | [place] [address] | + + + | Home Phone | | + + + | Preferred Language | Unknown | + + + | Marital Status | Single | + + + | Yazidism Affiliation | NRP | + + + | Race | White | + + + | Ethnic Group | Not or | + + + Author + + + | Author | [facility] | + + + | Organization | [facility] | + + + | Address | Unknown | + + + | Phone | Unavailable | + + + Support + + + + + | Name | Relationship | Address | Phone | + + + + + | KRANTHI MONTEJO | ECON | [address] | | | | | [address], | | | | | [place] [address] | | + + + + + Care Team Providers + +------+ + | Care University Extension Specialist Name | Role | Phone | [...] | | | | | [address] [place], | [place], [place] | | | | | [place] [address] | [address] | | | | | [phone] | | | | | | | [...]
--- OUTSIDE RECORDS SUMMARY | ~2017-07-15 | XMS | Encounter Summary ---
Demographics + + + | Address | [address] [place] [address] | | | [place] [address] | + + + | Home Phone [...] Author + + + | Author | [facility] | + + + | Organization | [facility] | + + + | Address | Unknown | + + + | Phone | Unavailable | + + + Support + + + + + | Name | Relationship | Address | Phone | + + + + + | KRANTHI MONTEJO | ECON | [address] | | | | | [address], | | | | | [place] [address] | | + + + + + Care Team Providers + +------+ + | Care Machine Engraver Name | Role | Phone | + [...] thigh | | | | [address] [place], | [place], [place] | (Primary Dx); | | | | [place] [address] | [address] | Shoulder | | | | [phone] | [phone] | impingement, right; | | | | [...] Musculoskeletal pain of right thigh (Sartorius = Travel Agent muscle) Pain is muscular. I prescribed diclofenac [...] 2 hours she was told to by pulmonologist/intensivist provider. The lows happen in the afternoon [...] Musculoskeletal pain of right thigh (Sartorius = Travel Agent muscle) Pain is muscular. I prescribed diclofenac [...] the growth of yeast. I, Alyssa Lujan [facility], am functioning as a scribe for Nichol Ordoñez PA-C. I have reviewed and verified the above scribed note of my visit with this patient. Nichol Ordoñez PA-C [facility] [address] [place] [address] in this encounter Plan of [...]
--- OUTSIDE RECORDS SUMMARY | ~2017-07-15 | XMS | Clinical Summary ---
Demographics + + + | Address | [address] [place] [address] | | | [place] [address] | + + + | Home Phone | | + + + | Preferred Language | Unknown | + + + | Marital Status | Single | + + + | Mormonism Affiliation | Unknown | + + + | Race | Unknown | + + + | Ethnic Group | Unknown | + + + Author + + + | Author | [facility] | | | and [place] | + + + | Organization | [facility] | | | and [place] | [...] Team Providers + +------+ + | Care Advertising Intern Name | Role | Phone | [...] | [place] | xxxxxxxx | [place] | [phone] | | STATE | ID OUT [...] | Self | [birth year] | Home: | [address] | | | al/Fam | | 1969 | [phone] | [address] | | | christina | | | [address] | [place] [address] | + +--------+ +--------+ + +
--- OUTSIDE RECORDS SUMMARY | ~2017-07-15 | XMS | Encounter Summary ---
Demographics + + + | Address | [address] [place] | | | [place] [address] | + + + | Home Phone [...] + | KRANTHI MONTEJO | ECON | [address] | | | | | [address], | | | | | [place] [address] | | + + + + + Care Team Providers + +------+ + | Care Shell Press Operator Name | Role | Phone | [...] | | | | | [address] [place], | [place], [place] | | | | | [place] [address] | [address] | | | | | [phone] | [phone] | | | | | | | [...] | + + + | Swab | [facility] [address] [place] [address] [place], | | | [place] [address] | + + + in this encounter Visit Diagnoses + + | Diagnosis | + + | Flu-like symptoms | + + | Influenza with other respiratory manifestations | + +"
--- OUTSIDE RECORDS SUMMARY | ~2017-07-15 | XMS | Encounter Summary ---
Demographics + + + | Address | [address] [address] | | | [place] [address] | + + + | Home Phone | | + + + | Preferred Language | Unknown | + + + | Marital Status | Single | + + + | Anabaptist Affiliation | NRP | + + + [...] + | KRANTHI MONTEJO | ECON | [address] | | | | | [address], | | | | | [place] [address] | | + + + + + Care Team Providers + +------+ + | Care Cloth Beamer Name | Role | Phone | + [...] | | | | | [address] [place], | [place] | | | | | [place] [address] | [address] | | | | | [phone] | [phone] | | | | | | | [...]
--- OUTSIDE RECORDS SUMMARY | ~2017-07-15 | XMS | Encounter Summary ---
Demographics + + + | Address | [address] [address] | | | [place] [address] | + + + | Home Phone [...] + | KRANTHI MONTEJO | ECON | [address] | | | | | [address], | | | | | [place] [address] | | + + + + + Care Team Providers + +------+ + | Care Protozoology Teacher Name | Role | Phone | + [...] | complication, with | | | | [address] | | long-term current | | | | [phone] | | use of insulin | | [...] | + + + | Blood | [address] [facility] | | | [place] [address] | + + + + + | [...] | + + + | Urine | [address] [facility] | | | [place] [address] | + + + + + | [...] | >60 | >60 mL/min | | [facility] | | | + +---------+ + | EGFR NON | >60 | >60 mL/min | | -SLOVENIAN | | | + +---------+ + | ANION GAP | 11 (L) | 12 - 20 mmol/L | + +---------+ + | FASTING 8 HOURS OR | No | | | MORE? | | | + +---------+ + + + + | Specimen | Performing Laboratory | + + + | Blood | [facility] | | | [place] [address] | + + + HEMOGLOBIN A1C, BLOOD [...] | + + + | Blood | [address] [facility] | | | [place] [address] | + + + + + | Narrative | + + | Glycohemoglobin Recommended Diabetic Ranges per DCCT & ADA: Normal | | Range: <6% Good | | Control: <7% Additional action | | suggested: >8% Non-Diabetic | | Ranges: 4-6% Aitchbone Breaker's Glycohemoglobin Diabetic | | Ranges: Normal Range: [...]
[2017-07-15] MEDS ORDERED: OMEPRAZOLE20 MG PO (14:14)
[2017-07-15] MEDS ORDERED: ARIPIPRAZOLE30 MG PO (14:15)
[2017-07-15] MEDS ORDERED: CYCLOBENZAPRINE10 MG PO (14:15)
[2017-07-15] MEDS ORDERED: ASPIRIN EC81 MG PO (14:15)
[2017-07-15] MEDS ORDERED: MINIPRESS2 MG PO (14:15)
[2017-07-15] MEDS ORDERED: METFORMIN HCL850 MG PO (14:15)
[2017-07-15] MEDS ORDERED: BENZTROPINE MESY1 MG PO (14:15)
[2017-07-15] MEDS ORDERED: GABAPENTIN300 MG PO (14:16)
[2017-07-15] MEDS ORDERED: METOPROLOL TART25 MG PO (14:17)
[2017-07-15] MEDS ORDERED: ISOSORBIDE MONO30 MG PO (14:17)
[2017-07-15] MEDS ORDERED: COMBIVENT RESPIM4 GM INH (14:17)
[2017-07-15] MEDS ORDERED: INVOKANA100 MG PO (14:17)
[2017-07-15] MEDS ORDERED: ATORVASTATIN CA20 MG PO (14:17)
[2017-07-15] MEDS ORDERED: LANTUS100 UNITS/ SUB-Q (14:18)
[2017-07-15] MEDS ORDERED: MECLIZINE HCL12.5 MG PO (14:18)
[2017-07-15] MEDS ORDERED: NYSTATIN15 GM TOP (14:19)
[2017-07-15] MEDS ORDERED: NOVOLOG100 UNIT/2 SUB-Q (14:20)
[2017-07-15] MEDS ORDERED: METHYLPREDNISOLO4 M1 PO (18:24)
[2017-07-15] MEDS ORDERED: ZITHROMAX250 MG PO (18:24)
== END 2017-07-15 14:35 | disposition home or self-care (01) ==
LOC: ED 14:04
DX: R50.9 Fever, unspecified (principal); R05 Cough

== ENCOUNTER 2017-07-15 15:40 | Emergency (ER) | payer MEDICAID ==
[~2017-07-15] VITALS: Ht 170.2 cm; Wt 121.6 kg
[~2017-07-15 15:40] MED LIST: ARIPIPRAZOLE30 MG PO; ASPIRIN EC81 MG PO; ATORVASTATIN CA20 MG PO; BENZTROPINE MESY1 MG PO; COMBIVENT RESPIM4 GM INH; CYCLOBENZAPRINE10 MG PO; GABAPENTIN300 MG PO; INVOKANA100 MG PO; ISOSORBIDE MONO30 MG PO; LANTUS100 UNITS/ SUB-Q; MECLIZINE HCL12.5 MG PO; METFORMIN HCL850 MG PO; METOPROLOL TART25 MG PO; MINIPRESS2 MG PO; NOVOLOG100 UNIT/2 SUB-Q; NYSTATIN15 GM TOP; OMEPRAZOLE20 MG PO
--- OUTSIDE RECORDS SUMMARY | 2017-07-15 16:04 | XMS | Encounter Summary ---
Demographics + + + | Address | [address] [address] | | | [place] [address] | + + + | Home Phone | | + + + | Preferred Language | Unknown | + + + | Marital Status | Single | + + + | Orthodox Affiliation | NRP | + + + | Race | White | + + + | Ethnic Group | Not or | + + + Author + + + | Author | [facility] | + + + | Organization | [facility] | + + + | Address | Unknown | + + + | Phone | Unavailable | + + + Support + + + + + | Name | Relationship | Address | Phone | + + + + + | KRANTHI MONTEJO | ECON | [address] | | | | | [address], | | | | | [place] [address] | | + + + + + Care Team Providers + +------+ + | Care Specialist Physician Name | Role | Phone | + +------+ + | Nichol Ordoñez PA-C | PCP | | + +------+ + Reason for Visit + + + | Reason | Comments | + + + | Refill Request | [email or web address] | + + + Encounter Details +--------+--------+ + + + | Date | Type | Department | Care Team | Description | +--------+--------+ + + + | 07/01/ | Refill | [facility] | Nichol Ordoñez, | Refill Request | | 2018 | | [address] | PA-C [address] | ([email or web address]) | | | | [address] [place], | [place], [place] | | | | | [place] [address] | [address] | | | | | [phone] | [phone] | | | | | | | | +--------+--------+ + + + Social History + +-------+ +--------+------+ | Tobacco Use | Types | Packs/Day | Years | Date | | | | | Used | | + +-------+ +--------+------+ | Never Smoker | | | | | + +-------+ +--------+------+ + +---+---+---+ | Smokeless Tobacco: | | | | | Never Used | | | | + +---+---+---+ + + +---------+ + | Alcohol Use | Drinks/We | oz/Week | Comments | | | ek | | | + + +---------+ + | Yes | 0 | 0.0 | rare 4 times a year | | | Standard | | | | | drinks or | | | | | | | | | | equivalen | | | | | t | | | + + +---------+ + + + + | Sex Assigned at | Date Recorded | | | | + + + | Not on file | | + + + as of this encounter Plan of Treatment Not on fileas of this encounter Visit Diagnoses Not on filein this encounter"
--- OUTSIDE RECORDS SUMMARY | 2017-07-15 16:04 | XMS | Clinical Summary ---
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 | | | | | of scalp; Presence | | | | | | of (intrauterine) | | | | | | contraceptive | | | | | | device; Screening | | | | | | for substance abuse; | | | | | | Screening for | | | | | | depression; | | | | | | Uncontrolled type 2 | | | | | | diabetes mellitus | | | | | | without | | | | | | complication, with | | | | | | long-term current | | | | | | use of insulin (HCC) | +--------+ + + + + | 06/08/ | Telephone | | Anntia Arechiga FNP | Hypoglycemia | | 2017 | | | | | +--------+ + + + + | 06/07/ | Patient | | Fior 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, | 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 | | 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 | Call (ED Followup) | +--------+ + + + + | 06/04/ | Emergency | | Lexy Haley, | | | 2018 | | | MD | | +--------+ + + + + | 06/04/ | Telephone | | Fior Arreola, | Leg Pain | | 2017 | | | PA-C | | +--------+ + + + + | 06/01/ | Refill | | Fior Arreola, | Refill Request | 2017 | | | PA-C | | +--------+ + + + + | 05/17/ | Document-Sc | | Fior Arreola, | | 2017 | anned | | PA-C | | +--------+ + + + + | 05/17/ | Document-Sc | | Fior Arreola, | | 2017 | anned | | PA-C | | +--------+ + + + + | 05/17/ | Document-Sc | | Fior Arreola, | | | 2017 | anned | | PA-C | | +--------+ + + + + | 05/03/ | Refill | | Fior Arreola, | Refill Request | | 2017 | | | PA-C | (Atorvastatin 20 mg | | | | | | , Combivent , | | | | | | Gabapentin 300 mg) | +--------+ + + + + | 04/30/ | Refill | | Fior Arreola, | Refill Request | | 2018 | | | PA-C | (tramadol and | | | | | | cyclobenzaprine) | +--------+ + + + + | 04/28/ | Document-Sc | | Fior Arreola, | | | 2018 | anned | | PA-C | | +--------+ + + + + | 04/26/ | Telephone | | Fior Arreola, | Lab Results | | 2017 | | | PA-C | | +--------+ + + + + | 04/22/ | Office | | Fior Arreola, | Uncontrolled type 2 | | 2017 | Visit | | PA-C | diabetes mellitus | | | | | | without | | | | | | complication, with | | | | | | long-term current | | | | | | use of insulin (HCC) | | | | | | (Primary Dx); Type | | | | | | 2 diabetes mellitus | | | | | | without | | | | | | complication, with | | | | | | long-term current | | | | | | use of insulin | | | | | | (HCC); Essential | | | | | | hypertension; | | | | | | Flu-like symptoms | +--------+ + + + + | 04/22/ | Lab | | | Uncontrolled type 2 | | 2018 | | | | diabetes mellitus | | | | | | without | | | | | | complication, with | | | | | | long-term current | | | | | | use of insulin | | | | | | (HCC); Mixed | | | | | | hyperlipidemia | +--------+ + + + + | 04/22/ | Orders Only | | Fior Arreola, | Flu-like symptoms | | 2017 | | | PA-C | | +--------+ + + + + from Last 3 Months Immunizations + + + + | Name | Dates Previously Given | Next Due | + + + + | Flu Recombinant | 01/16/2014, 01/25/2013, 02/02/2012 | | | Injectable pFree | | | + + + + | Flu trivalent | 01/16/2014, 01/25/2013, 02/02/2012 | | | injectable pfree | | | + + + + | Influenza Injectable | 01/22/2017, 01/22/2016, 01/11/2015 | | | Quadrivalent (IIV4 | | | | P-Free) | | | + + + + | Influenza, seasonal, | 01/13/2011, 02/18/2010 | | | injectable | | | + + + + | Influenza, seasonal, | 01/13/2011, 02/18/2010 | | | intradermal pfree | | | + + + + | Pneumococcal 23 | 02/10/2011 | | + + + + | Tdap | 01/16/2014 | | + + + + Family History + + +------+ + | Medical History | Relation | Name | Comments | + + +------+ + | Cancer | Brother | | | + + +------+ + | Diabetes | Maternal | | | | | Grandmoth | | | | | er | | | + + +------+ + | Cancer | Mother | | | + + +------+ + | Diabetes | Mother | | | + + +------+ + | Hypertrophic | Mother | | | | Cardiomyopathy | | | | + + +------+ + | Diabetes | Paternal | | | | | Grandmoth | | | | | er | | | + + +------+ + + +------+--------+ + | Relation | Name | Status | Comments | + +------+--------+ + | Brother | | | | + +------+--------+ + | Maternal Grandmother | | | | + +------+--------+ + | Mother | | | | + +------+--------+ + | Paternal Grandmother | | | | + +------+--------+ + Social History + +-------+ +--------+------+ | Tobacco Use | Types | Packs/Day | Years | Date | | | | | Used | | + +-------+ +--------+------+ | Never Smoker | | | | | + +-------+ +--------+------+ + +---+---+---+ | Smokeless Tobacco: | | | | | Never Used | | | | + +---+---+---+ + + | Tobacco Cessation: Counseling Given: No | + + + + +---------+ + | Alcohol Use [...] on file | | + + + Last Filed Vital Signs + + + + | Vital Sign | Reading | Time Taken | + + + + | Blood Pressure | 100/66 | 06/17/2017 11:17 AM PDT | + + + + | Pulse | 77 | 06/17/2017 11:17 AM PDT | + + + + | Temperature | 37 C (98.6 F) | 06/17/2017 11:17 AM PDT | + + + + | Respiratory Rate | 16 | 06/04/2017 1:57 PM PST | + + + + | Oxygen Saturation | 95% | 06/17/2017 11:17 AM PDT | + + + + | Inhaled Oxygen | - | - | | Concentration | | | + + + + | Weight | 129.2 kg (284 lb | 06/17/2017 11:17 AM PDT | | | 12.8 oz) | | + + + + | Height | 172.1 cm (5' 7.75") | 06/17/2017 11:17 AM PDT | + + + + | Body Mass Index | 43.62 | 06/17/2017 11:17 AM PDT | + + + + Plan of Treatment + + + + + | Health Maintenance | Due Date | Last Done | Comments | + + + + + | HIV SCREEN | | | | | | 2 | | | + + + + + | CARE MANAGEMENT: | | 06/17/2017, 04/22/2017, | | | RISK LEVEL 3 (HIGH) | 8 | 04/08/2017, Additional history | | | | | exists | | + + + + + | HEMOGLOBIN A1C | | 04/22/2017, 01/22/2017, | | | | 8 | 07/22/2016, Additional history | | | | | exists | | + + + + + | INFLUENZA VACCINE | | 01/22/2017, 01/22/2016, | | | (FLU SHOT) | 8 | 01/11/2015, Additional history | | | | | exists | | + + + + + | MONOFILAMENT FOOT | | 01/22/2017, 05/04/2016, | | | EXAM | 8 | 02/17/2016, Additional history | | | | | exists | | + + + + + | CHOLESTEROL | | 04/22/2017, 05/04/2016, | | | SCREENING | 9 | 04/17/2015, Additional history | | | | | exists | | + + + + + | CREATININE | | 04/22/2017, 01/22/2017, | | | | 9 | 07/22/2016, Additional history | | | | | exists | | + + + + + | URINE MICROALBUMIN | | 04/22/2017, 05/04/2016, | | | | 9 | 04/17/2015, Additional history | | | | | exists | | + + + + + | DIABETIC EYE EXAM | | 05/14/2017, 05/07/2016, | | | | 9 | 04/08/2015, Additional history | | | | | exists | | + + + + + | PRECONCEPTION/CONTRA | | 06/17/2017, 06/17/2017, | | | CEPTION COUNSELING | 9 | 03/01/2017, Additional history | | | | | exists | | + + + + + | CERVICAL CYTOLOGY | | 05/13/2015, 03/14/2013, | | | (PAP SMEAR) | 1 | 03/06/2013 | | + + + + + | HPV TESTING | | 05/13/2015, 03/06/2013 | | | | 1 | | | + + + + + | DIPHTHERIA,TETANUS,a | | 01/16/2014 | | | nd PERTUSSIS | 4 | | | | (DTaP/Tdap/Td) (2 - | | | | | Td) | | | | + + + + + | PNEUMOCOCCAL ADULT | Completed | 02/10/2011 | | + + + + + Results US DOPPLER LOWER EXTREMITY RT (06/04/2017 1:33 PM) + + + | Specimen | Performing Laboratory | + + + | | [facility] DEPARTMENT OF RADIOLOGY | + + + + + | Narrative | + + | [address] [place] [address] | | [place] [id number] | | [phone] Name: | | STEPHANY SANCHEZ Phys: LEXY HALEY : | | 1970 Sex: F CSN: [id number] MR# [id number] | | Exam Date: 06/04/2017 EXAM: US DOPPLER LOWER EXTREMITY RT CLINICAL | | HISTORY: 47-year-old female with leg swelling and pain, evaluate for DVT. | | COMPARISON: None available. TECHNIQUE: Doppler, color Doppler, compressibility and | | augmentation imaging was done. FINDINGS: There is no evidence of deep venous | | thrombosis. IMPRESSION: Negative for DVT in the right lower extremity. | | REPORT SIGNED IN OTHER VENDOR SYSTEM 06/04/2017 Reported by: Bob Villasenor MD | | Electronically signed by: Bob Villasenor MD Transcribed Date/Time: 06/04/2017 13:54 | | Purchaser: FLUENCY | + + + + | Procedure Note | + + | Interface, Radiology Results - 06/04/2017 1:59 PM PST [address] | | [address] [place] [id number] | | Name: STEPHANY SANCHEZ Phys: TERALEXY : 1970 Sex: F | | CSN: [id number] MR# [id number] Exam Date: 06/04/2017 EXAM:US DOPPLER LOWER | | EXTREMITY RT CLINICAL HISTORY:47-year-old female with leg swelling and pain, evaluate | | for DVT. COMPARISON:None available. TECHNIQUE:Doppler, color Doppler, compressibility | | and augmentation imaging wasdone. FINDINGS:There is no evidence of deep venous | | thrombosis. IMPRESSION:Negative for DVT in the right lower extremity. REPORT SIGNED | | IN OTHER VENDOR SYSTEM 06/04/2017 Reported by: Bob Villasenor MD Electronically signed | | by: Bob Villasenor MD Transcribed Date/Time: 06/04/2017 13:54Transcriptionist: FLUENCY | | | | | |EXAM: | |US DOPPLER LOWER EXTREMITY RT | | | |CLINICAL HISTORY: | |47-year-old female with leg swelling and pain, evaluate for DVT. | | | |COMPARISON: | |None available. | | | |TECHNIQUE: | |Doppler, color Doppler, compressibility and augmentation imaging was | |done. | | | |FINDINGS: | |There is no evidence of deep venous thrombosis. | | | |IMPRESSION: | |Negative for DVT in the right lower extremity. | | | | | | REPORT SIGNED IN OTHER VENDOR SYSTEM 06/04/2017 | |Reported by: Bob Villasenor MD | | | |Electronically signed by: Bob Villasenor MD | | | |Transcribed Date/Time: 06/04/2017 13:54 | |Purchaser: IVÁN | | | | | | | + + ED INFORMATION EXCHANGE (06/04/2017 12:06 PM) + + + + | Component | Value | Ref Range | + + + + | SWATI PID | [id number] ([id number]) | | + + + + + + + | Specimen | Performing Laboratory | + + + | | [facility] [email or web address] [address] | | | [address] [place] [address] | + + + + + | Narrative | + + | Guidelines Source: [facility] Guidelines Date: 12/19/2015 Care | | Recommendation: - This patient has been identified as having >5 ED | | visits within the past year at EDs in [facility]. - Recommend no routine | | medication refills to encourage community follow up. - Limit workup for chronic | | or non-urgent issues - Refer to social work when warranted to discuss possible | | secondary gains, missed needs, barriers to care, disease management, or to | | redirect to community providers. - Recommend no narcotic or | | benzodiazepine prescriptions upon discharge by the ED in accordance with the regional | | Emergency Services on Controlled Substances (E-104.00). - Please | | utilize [facility] website to view prescription acquisition. - Restrict use of | | opioids in ED to only obvious trauma or severe medical issues - Please deputy chief counsel | | the patient about appropriate use of health care services as warranted - | | Encourage patient to establish and then seek care from their community provider to | | improve continuity of care. 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. | | [place] Emergency [id number]. POSS BLOOD CLOT TO R LEG, SWOLLEN/PAINFUL 03/13/2017 | | 13:[facility]. | | [place] Emergency -Periapical abscess without sinus | | | | -Nicotine | | dependence, cigarettes, uncomplicated | | | | -OTHER | | SPECIFIED DISORDERS OF TEETH AND SUPPORTING | | | | STRUCTURES | | | | -Dental caries, | | unspecified ED VISIT COUNT (12 MO.) Visits Location | | ------ --------- 1 [facility] 2 [facility] | | [facility]. 1 [facility]. 1 [facility] | | [facility] [address] [facility] 1 [facility]. | | [facility] 1 [facility] H. 8 Total Note: Visits | | indicate total known visits. | | CARE | | PROVIDERS | | Name | | Phone Type Service | | Dates | | ---- | | | | ----- ---- [facility] | | [facility] | | Unknown Primary Care Unknown - Current FIOR [place] | | [facility] | | GROUP Unknown Primary | | Care Unknown - Current FIOR ARREOLA at [facility] | | [place] [phone] Primary Care 01/11/2015 - | | [facility] | | [phone] Primary Care 08/22/2011 | | - Current RENNY MARI at [facility] PHYSICIAN | | SERVICES [phone] Specialist 09/11/2013 - | | Current NONSTAFF | | PHYSICIAN | | Unknown Primary Care Unknown - Current | + + RAPID FLU (04/22/2017 2:23 PM) + + + + | Component | Value | Ref Range | + + + + | RAPID FLU A ANTIGEN | Not Detected | Not Detected | + + + + | RAPID FLU B ANTIGEN | Not Detected | Not Detected | + + + + + + + | Specimen | Performing Laboratory | + + + | Swab | [facility] [address] [place] [address] [place], | | | [place] [address] | + + + ALBUMIN URINE, RANDOM (04/22/2017 12:32 PM) + + + + | Component | Value | Ref Range | + + + + | MICROALBUMIN | <1.2 | mg/dL | + + + + | ALBUMIN/CREATININE | Comment: Due to the limitations of testing, | <=30 mg/gm | | RATIO, URI* | one or more test result used in this | | | | calculation is below the measurable range | | | | for the analyte. Therefore, the calculation | | | | result cannot be reported. | | + + + + | CREATININE CONC | 74.6 | 20.0 - 320.0 mg/dL | | URINE | | | + + + + + + + | Specimen | Performing Laboratory | + + + | Urine | [address] [facility] | | | [place] [address] | + + + + + | Narrative | + + | The ADA (Diabetes Care 1997 20:S24-27) has defined abnormalities in albumin excretion | | as follows: CATEGORY: RESULT: | | Normal <30 mg/g creatinine | | Microalbuminurea 30-300 mg/g creatinine Clinical | | albuminurea >300 mg/g creatinine The ADA recommends that a least 2 of 3 | | specimens collected within a 3-6 month period be abnormal before considering a patient | | to be within a diagnostic category. | + + BASIC METABOLIC SET (NA, K, CL, TCO2, BUN, CR, GLU, CA) (04/22/2017 12:32 PM) + +---------+ + | Component | Value | Ref Range | + +---------+ + | GLUCOSE, PLASMA | 128 (H) | 70 - 105 mg/dL | | (LAB) | | | + +---------+ + | BUN, PLASMA (LAB) | 15 | 6 - 26 mg/dL | + +---------+ + | CREATININE, PLASMA | 0.6 | 0.6 - 1.1 mg/dL | + +---------+ + | SODIUM, PLASMA (LAB) | 141 | 137 - 146 mmol/L | + +---------+ + | POTASSIUM, PLASMA | 4.5 | 3.4 - 5.3 mmol/L | | (LAB) | | | + +---------+ + | CHLORIDE, PLASMA | 101 | 96 - 106 mmol/L | | (LAB) | | | + +---------+ + | TOTAL CO2, PLASMA | 29 | 18 - 30 mmol/L | | (LAB) | | | + +---------+ + | CALCIUM, PLASMA | 9.4 | 8.5 - 10.8 mg/dL | | (LAB) | | | + +---------+ + | BUN/CREATININE RATIO | 25 | 6 - 20 | + +---------+ + | EGFR - | >60 | >60 mL/min | | CHINESE | | | + +---------+ + | EGFR NON | >60 | >60 mL/min | | -CHINESE | | | + +---------+ + | ANION GAP | 11 (L) | 12 - 20 mmol/L | + +---------+ + | FASTING 8 HOURS OR | No | | | MORE? | | | + +---------+ + + + + | Specimen | Performing Laboratory | + + + | Blood | [address] [facility] | | | [place] [address] | + + + LIPID SET (TRIG, T CHOL, HDL, CALC LDL) (04/22/2017 12:32 PM) + +-------+ + | Component | Value | Ref Range | + +-------+ + | CHOLESTEROL (LAB) | 132 | 101 - 199 mg/dL | + +-------+ + | TRIGLYCERIDES | 141 | 45 - 150 mg/dL | + +-------+ + | HDL CHOLESTEROL | 48 | >40 mg/dL | + +-------+ + | LDL CHOLESTEROL, | 56 | <100 mg/dL | | CALCULATED | | | + +-------+ + | VLDL CHOLESTEROL, | 28 | 9 - 30 mg/dL | | CALCULATED | | | + +-------+ + | NON-HDL CHOLESTEROL | 84 | <130 mg/dL | + +-------+ + | CARDIAC RISK RATIO | 3 | | + +-------+ + | FASTING 8 HOURS OR | No | | | MORE? | | | + +-------+ + + + + | Specimen | Performing Laboratory | + + + | Blood | [address] [facility] | | | [place] [address] | + + + + + | Narrative | + + | The goal for non-HDL cholesterol is a level 30 mg/dL higher than that for LDL | | cholesterol. Cardiac Risk Ratio Interpretation: | | Interpretation Cardiac Risk Ratio Below Average | | Risk 0.0 - 3.4 Above Average | | Risk 3.5 - 4.9 | + + HEMOGLOBIN A1C, BLOOD (04/22/2017 12:32 PM) + +-------+ + | Component | Value | Ref Range | + +-------+ + | HEMOGLOBIN A1C | 7.2 | % | + +-------+ + | ESTIMATED AVERAGE | 160 | mg/dL | | GLUCOSE | | | + +-------+ + + + + | Specimen | Performing Laboratory | + + + | Blood | [address] [facility] | | | [place] [address] | + + + + + | Narrative | + + | Glycohemoglobin Recommended Diabetic Ranges per DCCT & ADA: Normal | | Range: <6% Good | | Control: <7% Additional action | | suggested: >8% Non-Diabetic | | Ranges: 4-6% Skating Rink Manager's Glycohemoglobin Diabetic | | Ranges: Normal Range: 4.0-6.0% | | Good Control: 6.0-8.0% | | Poor Control: >8.0% | + + from Last 3 Months
--- OUTSIDE RECORDS SUMMARY | 2017-07-15 16:04 | XMS | Encounter Summary ---
Demographics + + + | Address | [address] [place] | | | [place] [address] | + + + | Home Phone | | + + + | Preferred Language | Unknown | + + + | Marital Status | Single | + + + | Confucianism Affiliation | NRP | + + + | Race | White | + + + | Ethnic Group | Not or | + + + Author + + + | Author | [facility] | + + + | Organization | [facility] | + + + | Address | Unknown | + + + | Phone | Unavailable | + + + Support + + + + + | Name | Relationship | Address | Phone | + + + + + | KRANTHI MONTEJO | ECON | [address] | | | | | [address], | | | | | [place] [address] | | + + + + + Care Team Providers + +------+ + | Care Fiberglass Laminator Name | Role | Phone | + +------+ + | Nichol Ordoñez PA-C | PCP | | + +------+ + Reason for Visit + + + | Reason | Comments | + + + | Er Visit Follow-up | right leg pain still having this. temp 2 days ago was 101.3- used | | | tylenol and this helped it go down. no fevers since. | + + + Encounter Details +--------+---------+ + + + | Date | Type | Department | Care Team | Description | +--------+---------+ + + + | 06/17/ | Office | [facility] | Nichol Ordoñez, | Musculoskeletal pain | | 2018 | Visit | Medicine [address] | PA-C [address] | of right thigh | | | | [address] [place], | [place], [place] | (Primary Dx); | | | | [place] [address] | [address] | Shoulder | | | | [phone] | [phone] | impingement, right; | | | | [...] | | use of insulin (HCC) | +--------+---------+ + + + Social History + +-------+ [...] + + + as of this encounter Last Filed Vital Signs + + + [...] + + + | Respiratory Rate | - | - | + + + + | Oxygen [...] AM PDT | + + + + in this encounter Instructions Patient Instructions - Alyssa Lujan MA - 06/17/2017 11:30 AM PDT1. Musculoskeletal pain of right thigh (Sartorius = Literacy Coach muscle) Pain is muscular. I prescribed diclofenac to twice daily consistently for 2 weeks but do no t take this until you complete the prednisone for your COPD exacerbation (see below). Do not take any other ibuprofen or naproxen while taking the diclofenac or prednisone. Stop taking tylenol as you don't find it helpful. I recommend alternating heat and ice if you have been more active and doing gentle stretching twice daily for the next 2 weeks. Please follow up if you are not improving. The next step would be physical therapy. 2. Type 2 diabetes mellitus without complication, with long-term current use of insulin (HC C) We will decrease insulin to 45 with breakfast, 45 with lunch and 50 with dinner. Please let me know what your readings are in 2 weeks. Watch for low blood sugar as well as high blood sugars. I have placed lab work to complete in July when you come through this way. Please s chedule DM f/u with Carleen and myself when you're able in July/August. 3. Shoulder impingement, right We will continue tramadol for now due to continued shoulder pain. You will be due for refil l on 06/30/17. If home exercises are not helpful over the next month, I recommend following u p with physical therapy to discuss other exercises that may be more helpful. 4. COPD exacerbation I will treat with azithromycin (antibiotics) and prednisone. I have prescribed tessalon Per les to help with cough. Continue your inhalers as prescribed. Please ensure you get plenty o f rest, stay hydrated, use nasal saline/humidifier/steamy showers for congestion, tylenol/ib uprofen for headache/fever. Please follow up if your symptoms fail to improve over the next week, your symptoms worsen or new concerns arise. 5. Yeast infection of the skin The rash under your left arm is a yeast infection. I have prescribed nystatin to treat. Jeremy ly this twice daily through 2 days after rash has resolved. Keep area clean/dry as moist are as promote the growth of yeast. in this encounter Progress Notes Fatmata Simon MA - 06/17/2017 11:30 AM PDTOne [place]ina[place] Question: Do you plan on beco karen within the next 12 months? no If 'No', what method are you using to prevent a ? IUD Nichol Ordoñez PA-C - 06/17/2017 11:30 AM PDTFormatting of this note may be different fr om the original. SUBJECTIVE CC: Chief Complaint Patient presents with Er Visit Follow-up right leg pain still having this. temp 2 days ago was 101.3- used tylenol and this helped it go down. no fevers since. HPI: Stephany Medina is a 47 y.o. female following up after [facility] ER visit on 06/04/17 for right calf and thigh pain (radiates up to hip area). Pain had been present for 1.5 months b ut worsened 2.5 weeks ago which is why she went to the ER. She denies any known injury. She was concerned for clot which was ruled out at the ER and pain was determined to be muscular. Pain is still bothersome. It is a 5/10 when she is sitting or walking (dull) but increases if she stands up, walks up stairs or puts on her socks/shoes (sharp). Calf pain is only pres ent when she is walking occasionally but not always and is milder. She denies any numbness o r tingling. She denies any swelling in her leg. She was alternating heat and ice but didn't find it helpful so she stopped that. She is alternating tylenol (3 tablets twice per day) an d ibuprofen (600 mg twice per day) since she went to the ER. Tramadol has not been helpful f or the pain either. She has been doing HEP PT exercises for her right shoulder pain but it has not been helpful . She didn't do more PT sessions as she just wanted to do the HEP. She does it daily. It is not painful when she is doing the exercises but is sore afterwards. The pain has not worsene d but has not improved either. 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 Her blood sugars have been better but now she is getting low readings in the last week. The lows range normally 60-70 but the lowest was 48. She had to eat a big bowl of spaghetti, gl ucose tablets and orange juice and she was finally able to get it above 100 (104) within the 2 hours she was told to by transfer controller provider. The lows happen in the afternoon prior to lunc h and/or after lunch. She is currently taking novolog 50 units with each meal. She has been sick with a cold for 2 weeks. She has a productive cough, sore throat, ear rafael n, upper back ache, rash under left arm (developed quickly), headaches (frontal) and congest ion. She has had a fever off and on most recent 2 days ago 101.3. Her breathing has been wor se since illness with shortness of breath, occasional wheezing. Cough keeps her up at night and is not improving. She has COPD and has been using her inhalers. Review of Systems Constitutional: Positive for fever and malaise/fatigue. Negative for chills and diaphoresis . HENT: Positive for congestion, ear pain and sore throat. Negative for ear discharge, hearin g loss, nosebleeds and tinnitus. Eyes: Negative for blurred vision, pain, discharge and redness. Respiratory: Positive for cough, sputum production, shortness of breath and wheezing. Cardiovascular: Negative for chest pain. Gastrointestinal: Negative for abdominal pain, constipation, diarrhea, nausea and vomiting. Musculoskeletal: Positive for back pain, joint pain and myalgias. Negative for neck pain. Skin: Positive for rash. Negative for itching. Neurological: Positive for headaches. Negative for dizziness. OBJECTIVE PHYSICAL EXAM: BP 100/66 | Pulse 77 | Temp (Src) 37 C (98.6 F) (Oral) | Ht 1.721 m (5' 7.75") | Wt 129 .2 kg (284 lb 12.8 oz) | SpO2 95% | BMI 43.62 kg/(m^2) General appearance: Obese, without distress. HEENT: Eyes: Sclera nonicteric and without erythema. Conjunctiva pink, moist without discharge. Ears: Canals clear, TMs pearly zamora with light reflex and bony structures evident. No perf orations, air-fluid line or erythema. Nose: Nares patent bilaterally. Clear discharge. Turbinates pink, moist, with erythema and edema. No polyps. Mouth: Lips pink without lesions. Uvula midline. Oropharynx without edema, erythema or exud ates. Buccal mucosa and gingiva pink, moist without hemorrhage or lesions. Neck: Trachea midline. No tonsilar, submandiblar, submental, anterior and posterior cervica l chains, or supraclavicular lymphadenopathy or tenderness Pulm: Regular, nonlabored breathing without accessory muscle use. CTA A/P/L bilaterally wit h decreased breath sounds throughout and end expiratory wheezes. No crackles, rubs or rhonch i. Nails smooth without clubbing, spooning or cyanosis. Capillary refill < 2 seconds. Cardiac: RRR without murmur, rubs or gallops. Carotid pulses equal bilaterally without brui ts. Radial, posterior tibialis pulses 2+ and equal bilaterally. Abdomen: Contour uniform. Normoactive bowel sounds x 4 quadrants, no rubs or bruits. Soft, nontender, nondistended without masses or rigidity on palpation. No hepatosplenomegaly. Musculoskeletal: Full hip, knee ROM with pain on hip flexion and external rotation. Tendern ess to palpation of Right ASIS along sartorius muscle to pes anserine. Greater trochanter, i nguinal region, and knee nontender. No deformity, palpable knot/mass, excess warmth or edema evident of entire right leg. Sitting to standing movement is slow, antalgic but smooth, gai t once walking is not antalgic and is smooth. Negative Buster's. Skin: warm, smooth and firm with resilient turgor. Bright red erythema of left axilla, tae t erythema developing of right axilla. No satellite lesions, dehiscence, weeping, or rash. Extremities: symmetrical, uniformly light dubon with equal hair distribution without varicosi ties, rubor, cyanosis or ulcerations. No pitting or edema with finger pressure. Psych: Dressed appropriately, good eye contact, linear thought progression. ASSESSMENT/PLAN 1. Musculoskeletal pain of right thigh (Sartorius = Literacy Coach muscle) Pain is muscular. I prescribed diclofenac to twice daily consistently for 2 weeks but do no t take this until you complete the prednisone for your COPD exacerbation (see below). Do not take any other ibuprofen or naproxen while taking the diclofenac or prednisone. Stop taking tylenol as you don't find it helpful. I recommend alternating heat and ice if you have been more active and doing gentle stretching twice daily for the next 2 weeks. Please follow up if you are not improving. The next step would be physical therapy. 2. Type 2 diabetes mellitus without complication, with long-term current use of insulin (HC C) We will decrease insulin to 45 with breakfast, 45 with lunch and 50 with dinner. Please let me know what your readings are in 2 weeks. Watch for low blood sugar as well as high blood sugars. I have placed lab work to complete in July when you come through this way. Please s chedule DM f/u with Carleen and myself when you're able in July/August. 3. Shoulder impingement, right We will continue tramadol for now due to continued shoulder pain. You will be due for refil l on 06/30/17. If home exercises are not helpful over the next month, I recommend following u p with physical therapy to discuss other exercises that may be more helpful. 4. COPD exacerbation I will treat with azithromycin (antibiotics) and prednisone. I have prescribed tessalon Per les to help with cough. Continue your inhalers as prescribed. Please ensure you get plenty o f rest, stay hydrated, use nasal saline/humidifier/steamy showers for congestion, tylenol/ib uprofen for headache/fever. Please follow up if your symptoms fail to improve over the next week, your symptoms worsen or new concerns arise. 5. Yeast infection of the skin The rash under your left arm is a yeast infection. I have prescribed nystatin to treat. Jeremy ly this twice daily through 2 days after rash has resolved. Keep area clean/dry as moist are as promote the growth of yeast. I, Alyssa Lujan [facility], am functioning as a scribe for Nichol Ordoñez PA-C. I have reviewed and verified the above scribed note of my visit with this patient. Nichol Ordoñez PA-C [facility] [address] [place] [address] in this encounter Plan of Treatment + +--------+ + + | Name | Priori | Associated Diagnoses | Order Schedule | | | ty | | | + +--------+ + + | BASIC METABOLIC SET (NA, K, CL, | Routin | Uncontrolled type | Expected: 06/17/2017 | | TCO2, BUN, CR, GLU, CA) | e | 2 diabetes mellitus | (Approximate), | | | | without | Expires: 07/18/2018 | | | | complication, with | | | | | long-term current | | | | | use of insulin (HCC) | | + +--------+ + + | HEMOGLOBIN A1C, BLOOD | Routin | Uncontrolled type | Expected: 06/17/2017 | | | e | 2 diabetes mellitus | (Approximate), | | | | without | Expires: 07/19/2018 | | | | complication, with | | | | | long-term current | | | | | use of insulin (HCC) | | + +--------+ + + as of this encounter Visit Diagnoses + + | Diagnosis | + + | Musculoskeletal pain of right thigh - Primary | + + | Shoulder impingement, right | + + | COPD with acute exacerbation (HCC) | + + | Obstructive chronic bronchitis with exacerbation | + + | Yeast infection of the skin | + + | Candidiasis of skin and nails | + + | Psoriasis of scalp | + + | Other psoriasis | + + | Presence of (intrauterine) contraceptive device | + + | Presence of intrauterine contraceptive device | + + | Screening for substance abuse | + + | Screening for unspecified condition | + + | Screening for depression | + + | Uncontrolled type 2 diabetes mellitus without complication, with long-term current use | | of insulin (HCC) | + +
--- OUTSIDE RECORDS SUMMARY | 2017-07-15 16:04 | XMS | Encounter Summary ---
Demographics + + + | Address | [address] | | | [place] [address] | + + + | Home Phone [...] Author + + + | Author | [facility] | + + + | Organization | [facility] | + + + | Address | Unknown | + + + | Phone | Unavailable | + + + Support + + + + + | Name | Relationship | Address | Phone | + + + + + | KRANTHI MONTEJO | ECON | [address] | | | | | [address], | | | | | [place] [address] | | + + + + + Care Team Providers + +------+ + | Care Marklogic Developer Name | Role | Phone | + +------+ + | Nichol Ordoñez PA-C | PCP | | + +------+ + Reason for Visit + + + | Reason | Comments | + + + | Prior Authorization | freestyle test strips | | Request - Medication | | + + + Encounter Details +--------+ + + + + | Date | Type | Department | Care Team | Description | +--------+ + + + + | 06/25/ | Telephone | [facility] | Nichol Ordoñez, | Prior Authorization | | 2018 | | Medicine [address] | PA-C [address] | Request - Medication | | | | [place], | [place], [place] | (freestyle test | | | | [place] [address] | [phone] | strips) | | | | [phone] | [phone] | | | | | | | | +--------+ + + + + Social History + +-------+ [...]
--- OUTSIDE RECORDS SUMMARY | 2017-07-15 16:04 | XMS | Encounter Summary ---
Demographics + + + | Address | [address] [place] [address] | | | [place] [address] | + + + | Home Phone | | + + + | Preferred Language | Unknown | + + + | Marital Status | Single | + + + | Mandaen Affiliation | NRP | + + + | Race | White | + + + | Ethnic Group | Not or | + + + Author + + + | Author | [facility] | + + + | Organization | [facility] | + + + | Address | Unknown | + + + | Phone | Unavailable | + + + Support + + + + + | Name | Relationship | Address | Phone | + + + + + | KRANTHI MONTEJO | ECON | [address] | | | | | [address], | | | | | [place] [address] | | + + + + + Care Team Providers + +------+ + | Care Shock Absorber Installer Name | Role | Phone | + +------+ + | Nichol Ordoñez PA-C | PCP | | + +------+ + Encounter Details +--------+ + + + + | Date | Type | Department | Care Team | Description | +--------+ + + + + | 06/18/ | Document-Sc | [facility] | Nichol Ordoñez, | | | 2018 | anned | Medicine [address] | PHILIP [address] | | | | | [address] [place], | [place] | | | | | [place] [address] | [address] | | | | | [phone] | [phone] | | | | | | | [...]
--- OUTSIDE RECORDS SUMMARY | 2017-07-15 16:04 | XMS | Encounter Summary ---
Demographics + + + | Address | [address] [place] | | | [place] [address] | + + + | Home Phone | | + + + | Preferred Language | Unknown | + + + | Marital Status | Single | + + + | Latter Day Affiliation | NRP | + + + | Race | White | + + + | Ethnic Group | Not or | + + + Author + + + | Author | [facility] | + + + | Organization | [facility] | + + + | Address | Unknown | + + + | Phone | Unavailable | + + + Support + + + + + | Name | Relationship | Address | Phone | + + + + + | KRANTHI MONTEJO | ECON | [address] | | | | | [address], | | | | | [place] [address] | | + + + + + Care Team Providers + +------+ + | Care Ribbon Winder Name | Role | Phone | + +------+ + | Nichol Ordoñez PA-C | PCP | | + +------+ + Encounter Details +--------+ + + + + | Date | Type | Department | Care Team | Description | +--------+ + + + + | 06/28/ | Document-Sc | [facility] | Nichol Ordoñez, | | | 2018 | anned | Medicine [address] | PH[address] | | | | | [address] [place], | [place] | | | | | [place] [address] | [address] | | | | | [phone] | [phone] | | | | | | | [...]
--- OUTSIDE RECORDS SUMMARY | 2017-07-15 16:05 | XMS | Encounter Summary ---
Demographics + + + | Address | [address] | | | [place] [address] | + + + | Home Phone | | + + + | Preferred Language | Unknown | + + + | Marital Status | Single | + + + | Sikh Affiliation | NRP | + + + | Race | White | + + + | Ethnic Group | Not or | + + + Author + + + | Author | [facility] | + + + | Organization | [facility] | + + + | Address | Unknown | + + + | Phone | Unavailable | + + + Support + + + + + | Name | Relationship | Address | Phone | + + + + + | KRANTHI MONTEJO | ECON | [address] | | | | | [address], | | | | | [place] [address] | | + + + + + Care Team Providers + +------+ + | Care In Service Educator Name | Role | Phone | + +------+ + | Nichol Ordoñez PA-C | PCP | | + +------+ + Encounter Details +--------+ + + + + | Date | Type | Department | Care Team | Description | +--------+ + + + + | 04/28/ | Document-Sc | [facility] | Nichol Ordoñez, | | | 2018 | anned | Medicine [address] | PH[facility]IP [address] | | | | | [address] [place], | [place] | | | | | [place] [address] | [address] | | | | | [phone] | [phone] | | | | | | | [...]
--- OUTSIDE RECORDS SUMMARY | 2017-07-15 16:05 | XMS | Encounter Summary ---
Demographics + + + | Address | [address] | | | [place] [address] | + + + | Home Phone | | + + + | Preferred Language | Unknown | + + + | Marital Status | Single | + + + | Restorationism Affiliation | NRP | + + + | Race | White | + + + | Ethnic Group | Not or | + + + Author + + + | Author | [facility] | + + + | Organization | [facility] | + + + | Address | Unknown | + + + | Phone | Unavailable | + + + Support + + + + + | Name | Relationship | Address | Phone | + + + + + | KRANTHI MONTEJO | ECON | [address] | | | | | [address], | | | | | [place] [address] | | + + + + + Care Team Providers + +------+ + | Care Drafting Engineer Name | Role | Phone | + +------+ + | Nichol Ordoñez PA-C | PCP | | + +------+ + Encounter Details +--------+ + + + + | Date | Type | Department | Care Team | Description | +--------+ + + + + | 04/22/ | Orders Only | [facility] | Nichol Ordoñez, | Flu-like symptoms | | 2017 | | Medicine [address] | [address] | | | | | [address] [place], | [place], [place] | | | | | [place] [address] | [address] | | | | | [phone] | [phone] | | | | | | | [...] Treatment Not on fileas of this encounter Results RAPID FLU (04/22/2017 2:23 PM) + + [...] + + + | Swab | [facility] [address] [place] [address] [place], | | | [place] [address] | + + + in this encounter Visit Diagnoses + + | Diagnosis | + + | Flu-like symptoms | + + | Influenza with other respiratory manifestations | + +"
--- OUTSIDE RECORDS SUMMARY | 2017-07-15 16:05 | XMS | Clinical Summary ---
Demographics + + + | Address | [address] | | | [place] [address] | + + + | Home Phone | | + + + | Preferred Language | Unknown | + + + | Marital Status | Single | + + + | Church Affiliation | NRP | + + + [...] + | KRANTHI MONTEJO | ECON | [address] | | | | | [address], | | | | | [place] [address] | | + + + + + Care Team Providers + +------+ + | Care Fibre Optic Cable Splicer Name | Role | Phone | + +------+ + | Fior Arreola PA-C | PP | | + +------+ + Source Comments MANJULA [facility] InPatient.Formerly [facility] Allergies + + + + + + [...] Patient ID: Stephany Sanchez 1970Care Plan Updated: 5-8-20Bzkvtv: Winnie Morales, | | RNTotal Time of Visit:PCP: Saul Kelly, JACK MORALES, RNJULISA | | YANDEL WEBB MDBASSEL BEITINJANEH, GENO BROWN, [facility]PBED[facility] | | GENO CEBALLOS, GENO KAPLAN, ANPDR | | [facility] Care Management Diagnosis: Care CoordinationPatient Active | [...] Eff To | | Jessica Status 1 DELIVERY MAN MEDIC*/DELIVERY MAN PACIF* STEPHANY SANCHEZ Verified Patient is | [...] | as advised by her therapist at [facility] feels this is helping with her depression [...] resources | | is working with a english drawer for SSI and depends on rides to medical appointments. Care | | plan updated and reviewed with pt and PCP. Utilization: High ED utilization throughout | | the [facility] Psychosocial Needs: Patient lives with her partner of 17 years | | [place]. Pt travels with her partner throughout | [...] we are still waiting for | | [employer] to fund Vegi Vouchers but we [...] will work on having Vegi vouchers at [facility] with Fior on 01-22-17 and [...] Andrew rncm09-23-16 T/C 07-20-16 1. T/C to [facility] and [facility] advises [...] continue to pend | | but that [facility] has reassured me that [...] when she and her will be in [place] working, refuses | | referral to Endocrinology. [...] CFL and PCP regularly Pt scheduled with [facility] 03-17-16 @ | | 11:32tp15-4-05: Pt scheduled with [facility] 04-23-16 @10:02ab17-03-08 Pt scheduled with | | podiatry and [...] | Center 02/15/2017 4:00 PM Fior Arreola [facility] Family Medicine [phone] [facility] | | MED 03/22/2017 2:30 PM Scot Smith [facility] Cardiology [phone] | | [facility] CARDIO NOTE TO INPATIENT [...] oxygen.Winnie Morales RNNurse Care ManagerMid | | [facility]: Next out reach: 08-05-17 Vegi [...] when she and her will be in [place] working, refuses referral to Endocrinology. Reviewe d [...] regularly | | | |Pt scheduled with [facility] 03-17-16 @ 11:15am | | | |02-10-16: Pt scheduled with [facility] 04-23-16 @10:30am | | | |01-30-16 Pt scheduled with podiatry and [facility] surgical. 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 front end developer | | 2018 | Outreach | | [...] Laboratory | + + + | | [facility] DEPARTMENT OF RADIOLOGY | + + + + + | Narrative | + + | [address] [place] [address] | | [place] [address] | | [phone] Name: | | STEPHANY SANCHEZ Phys: LEXY HALEY : | | 1970 Sex: F CSN: [id number] MR# [id number] | | Exam Date: 06/04/2017 EXAM: US [...] MD Transcribed Date/Time: 06/04/2017 13:54 | | Housekeeping Laundry Worker: FLUENCY | + + + + | Procedure Note | + + | Interface, Radiology Results - 06/04/2017 1:59 PM PST [address] | | [address] [place] [address] | | Name: STEPHANY SANCHEZ Phys: TERALEXY : 1970 Sex: F | | CSN: [id number] MR# [id number] Exam Date: 06/04/2017 EXAM:US DOPPLER LOWER | [...] | | |Transcribed Date/Time: 06/04/2017 13:54 | |Housekeeping Laundry Worker: IVÁN | | | | | | | + + ED INFORMATION EXCHANGE (06/04/2017 12:06 PM) + + + + | Component | Value | Ref Range | + + + + | SWATI PID | [id number] ([id number]) | | + + + + + + + | Specimen | Performing Laboratory | + + + | | [employer] [address] | | | [address] [place] [address] | + + + + + | Narrative | + + | Guidelines Source: [facility] Guidelines Date: 12/19/2015 Care | | Recommendation: - This patient has been identified as having >5 ED | | visits within the past year at EDs in [facility]. - Recommend no routine | | [...] Substances (E-104.00). - Please | | utilize [facility] website to view prescription acquisition. - Restrict use of | | opioids in ED to only obvious trauma or severe medical issues - Please school guidance counselor | | the patient about appropriate use of health care services as warranted - | | Encourage patient to establish and then seek care from their community provider to | | improve continuity of care. 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 | | [place] Emergency [address]. POSS BLOOD CLOT TO R LEG, SWOLLEN/PAINFUL 03/13/2017 | | [facility] | | [place] Emergency -Periapical abscess without sinus | | | | -Nicotine | | dependence, cigarettes, uncomplicated | | | | -OTHER | | SPECIFIED DISORDERS OF TEETH AND SUPPORTING | | | | STRUCTURES | | | | -Dental caries, | | unspecified ED VISIT COUNT (12 MO.) Visits Location | | ------ --------- 1 [facility] 2 [facility] | | [facility]. 1 [facility]. 1 [facility] | | [facility] 1 [facility] 1 [facility]. | | [facility] 1 [facility] H. 8 Total Note: Visits | | indicate total known visits. | | CARE | | PROVIDERS | | Name | | Phone Type Service | | Dates | | ---- | | | | ----- ---- [facility] | | [facility] | | Unknown Primary Care Unknown - Current FIOR [place] | | [facility] | | GROUP Unknown Primary | | Care Unknown - Current FIOR ARREOLA at [facility] | | [place] [phone] Primary Care 01/11/2015 - | | [facility] | | [phone] Primary Care 08/22/2011 | | - Current RENNY MARI at [facility] PHYSICIAN | | SERVICES [phone] Specialist 09/11/2013 - | | Current NONSTAFF [...] | + + + | Swab | [facility] [address] [place] [address] [place], | | | [place] [address] | + + + ALBUMIN URINE, RANDOM [...] | + + + | Urine | [address] [facility] | | | [place] [address] | + + + + + | [...] | >60 | >60 mL/min | | CZECH | | | + +---------+ + | EGFR NON | >60 | >60 mL/min | | -CZECH | | | + +---------+ + | ANION GAP | 11 (L) | 12 - 20 mmol/L | + +---------+ + | FASTING 8 HOURS [place] | No | | | MORE? | | | + +---------+ + + + + | Specimen | Performing Laboratory | + + + | Blood | [address] [facility] | | | [place] [address] | + + + LIPID SET (TRIG, [...] | + + + | Blood | [address] [facility] | | | [place] [address] | + + + + + | [...] | + + + | Blood | [address] [facility] | | | [place] [address] | + + + + + | Narrative | + + | Glycohemoglobin Recommended Diabetic Ranges per DCCT & ADA: Normal | | Range: <6% Good | | Control: <7% Additional action | | suggested: >8% Non-Diabetic | | Ranges: 4-6% Counselor Aid's Glycohemoglobin Diabetic | | Ranges: Normal Range: 4.0-6.0% | | Good Control: 6.0-8.0% | | Poor Control: >8.0% | + + from Last 3 Months
--- OUTSIDE RECORDS SUMMARY | 2017-07-15 16:05 | XMS | Encounter Summary ---
Demographics + + + | Address | [address] [place] | | | [place] [address] | + + + | Home Phone | | + + + | Preferred Language | Unknown | + + + | Marital Status | Single | + + + | Congregation Affiliation | NRP | + + + [...] + | KRANTHI MONTEJO | ECON | [address] | | | | | [address], | | | | | [place] [address] | | + + + + + Care Team Providers + +------+ + | Care Rib Cutter Name | Role | Phone | + +------+ + | Nichol Ordoñez PA-C | PCP | | + +------+ + Reason for Visit + + + | Reason | Comments | + + + | Refill Request | Atorvastatin 20 mg , Combivent , Gabapentin 300 mg | + + + Encounter Details +--------+--------+ + + + | Date | Type | Department | Care Team | Description | +--------+--------+ + + + | 05/03/ | Refill | [facility] | Nichol Ordoñez, | Refill Request | | 2017 | | Medicine [address] | PA-C [address] | (Atorvastatin 20 mg | | | | [address] [place], | [place], [place] | , Combivent , | | | | [place] [address] | [address] | Gabapentin 300 mg) | | | | [phone] | [phone] | | | | | | | [...] on fileas of this encounter Visit Diagnoses + + | Diagnosis | + + | Anxiety | + + | Anxiety state, unspecified | + +"
--- OUTSIDE RECORDS SUMMARY | 2017-07-15 16:05 | XMS | Encounter Summary ---
Demographics + + + | Address | [address] | | | [place] [address] | + + + | Home Phone [...] Author + + + | Author | [facility] | + + + | Organization | [facility] | + + + | Address | Unknown | + + + | Phone | Unavailable | + + + Support + + + + + | Name | Relationship | Address | Phone | + + + + + | KRANTHI MONTEJO | ECON | [address] | | | | | [address], | | | | | [place] [address] | | + + + + + Care Team Providers + +------+ + | Care Movers Name | Role | Phone | + +------+ + | Nichol Ordoñez PA-C | PCP | | + +------+ + Encounter Details +--------+------+ + + + | Date | Type | Department | Care Team | Description | +--------+------+ + + + | 04/22/ | Lab | Laboratory at [facility] | | Uncontrolled type 2 | | 2017 | | Family Medicine | | diabetes mellitus | | | | [address] | | without | | | | [place] | | complication, with | | | | [address] | | long-term current | | | | [phone] | | use of insulin | | | | | | (HCC); Mixed | | | | | | hyperlipidemia | +--------+------+ + + + Social History + +-------+ [...] Not on fileas of this encounter Results LIPID SET (TRIG, T CHOL, HDL, CALC [...] | + + + | Blood | [address] [facility] | | | [place] [address] | + + + + + | Narrative | + + | The goal for non-HDL cholesterol is a level 30 mg/dL higher than that for LDL | | cholesterol. Cardiac Risk Ratio Interpretation: | | Interpretation Cardiac Risk Ratio Below Average | | Risk 0.0 - 3.4 Above Average | | Risk 3.5 - 4.9 | + + ALBUMIN URINE, RANDOM (04/22/2017 12:32 [...] | + + + | Urine | [address] [facility] | | | [place] [address] | + + + + + | [...] | >60 | >60 mL/min | | IVORIAN | | | + +---------+ + | EGFR NON | >60 | >60 mL/min | | -IVORIAN | | | + +---------+ + | ANION GAP | 11 (L) | 12 - 20 mmol/L | + +---------+ + | FASTING 8 HOURS [place] | No | | | MORE? | | | + +---------+ + + + + | Specimen | Performing Laboratory | + + + | Blood | [facility] | | | [place] [address] | + + + HEMOGLOBIN A1C, BLOOD (04/22/2017 12:32 [...] | + + + | Blood | [address] [facility] | | | [place] [address] | + + + + + | Narrative | + + | Glycohemoglobin Recommended Diabetic Ranges per DCCT & ADA: Normal | | Range: <6% Good | | Control: <7% Additional action | | suggested: >8% Non-Diabetic | | Ranges: 4-6% Microgrinder Operator's Glycohemoglobin Diabetic | | Ranges: Normal Range: 4.0-6.0% | | Good Control: 6.0-8.0% | | Poor Control: >8.0% | + + in this encounter Visit Diagnoses + + | Diagnosis | + + | Uncontrolled type 2 diabetes mellitus without complication, with long-term current use | | of insulin (HCC) | + + | Mixed hyperlipidemia | + +"
--- OUTSIDE RECORDS SUMMARY | 2017-07-15 16:05 | XMS | Encounter Summary ---
Demographics + + + | Address | [address] [place] [address] | | | [place] [address] | + + + | Home Phone | | + + + | Preferred Language | Unknown | + + + | Marital Status | Single | + + + | Confucianist Affiliation | NRP | + + + | Race | White | + + + | Ethnic Group | Not or | + + + Author + + + | Author | [facility] | + + + | Organization | [facility] | + + + | Address | Unknown | + + + | Phone | Unavailable | + + + Support + + + + + | Name | Relationship | Address | Phone | + + + + + | KRANTHI MONTEJO | ECON | [address] | | | | | [address], | | | | | [place] [address] | | + + + + + Care Team Providers + +------+ + | Care Dried Fruit Washer Name | Role | Phone | + +------+ + | Nichol Ordoñez PA-C | PCP | | + +------+ + Encounter Details +--------+ + + + + | Date | Type | Department | Care Team | Description | +--------+ + + + + | 05/17/ | Document-Sc | [facility] | Nichol Ordoñez, | | | 2018 | anned | Medicine [address] | PHILIP [address] | | | | | [address] [place], | [place] | | | | | [place] [address] | [address] | | | | | [phone] | [phone] | | | | | | | [...]
--- OUTSIDE RECORDS SUMMARY | 2017-07-15 16:05 | XMS | Encounter Summary ---
Demographics + + + | Address | [address] [place] [address] | | | [place] [address] | + + + | Home Phone | | + + + | Preferred Language | Unknown | + + + | Marital Status | Single | + + + | Holiness Affiliation | NRP | + + + | Race | White | + + + | Ethnic Group | Not or | + + + Author + + + | Author | [facility] | + + + | Organization | [facility] | + + + | Address | Unknown | + + + | Phone | Unavailable | + + + Support + + + + + | Name | Relationship | Address | Phone | + + + + + | KRANTHI MONTEJO | ECON | [address] | | | | | [address], | | | | | [place] [address] | | + + + + + Care Team Providers + +------+ + | Care Reading Efficiency Course Director Name | Role | Phone | + [...] (omeprazole) | | | | [address] [place], | [place], [place] | | | | | [place] [address] | [address] | | | | | [phone] | [phone] | | | | | | | [...]
--- OUTSIDE RECORDS SUMMARY | 2017-07-15 16:05 | XMS | Encounter Summary ---
Demographics + + + | Address | [address] [place] [address] | | | [place] [address] | + + + | Home Phone [...] Author + + + | Author | [facility] | + + + | Organization | [facility] | + + + | Address | Unknown | + + + | Phone | Unavailable | + + + Support + + + + + | Name | Relationship | Address | Phone | + + + + + | KRANTHI MONTEJO | ECON | [address] | | | | | [address], | | | | | [place] [address] | | + + + + + Care Team Providers + +------+ + | Care Rn Maternal Child Name | Role | Phone | + +------+ + | Nichol Ordoñez PA-C | PCP | | + +------+ + Reason for Visit + + + | Reason | Comments | + + + | Refill Request | | + + + Encounter Details +--------+--------+ + + + | Date | Type | Department | Care Team | Description | +--------+--------+ + + + | 06/01/ | Refill | [facility] | OrdoñezNichol lai, | Refill Request | | 2017 | | Medicine [address] | PA-C [address] | | | | | [address] [place], | [place], [place] | | | | | [place] [address] | [address] | | | | | [phone] | [phone] | | | | | | | [...]
--- OUTSIDE RECORDS SUMMARY | 2017-07-15 16:05 | XMS | Encounter Summary ---
Demographics + + + | Address | [address] | | | [place] [address] | + + + | Home Phone [...] + + + | Author | [facility] | + + + | Organization | [facility] | + + + | Address | Unknown | + + + | Phone | Unavailable | + + + Support + + + + + | Name | Relationship | Address | Phone | + + + + + | KRANTHI MONTEJO | ECON | [address] | | | | | [address], | | | | | [place] [address] | | + + + + + Care Team Providers + +------+ + | Care Floor Surfacer Name | Role | Phone | + +------+ + | Nichol Ordoñez PA-C | PCP | | + +------+ + Reason for Visit + + + | Reason | Comments | + + + | Leg Pain | | + + + Encounter Details +--------+ + + + + | Date | Type | Department | Care Team | Description | +--------+ + + + + | 06/04/ | Telephone | [facility] | Nichol Ordoñez Chito, | Leg Pain | | 2018 | | Medicine [address] | PA-C [address] | | | | | [address] [place], | [place], [place] | | | | | [place] [address] | [address] | | | | | [phone] | [phone] | | | | | | | [...]
--- OUTSIDE RECORDS SUMMARY | 2017-07-15 16:05 | XMS | Clinical Summary ---
Demographics + + + | Address | [address] [place] | | | [place] [address] | + + + | Home Phone | | + + + | Preferred Language | Unknown | + + + | Marital Status | Single | + + + | Mandaen Affiliation | Unknown | + + + | Race | Unknown | + + + | Ethnic Group | Unknown | + + + Author + + + | Author | [facility] | | | and [place] | + + + | Organization | [facility] | | | and [place] | + + + | Address | Unknown | + + + | Phone | Unavailable | + + + Support + + +---------+ + | Name | Relationship | Address | Phone | + + +---------+ + | KRANTHI MONTEJO | ECON | Unknown | | + + +---------+ + Care Team Providers + +------+ + | Care Ship Scraper Name | Role | Phone | + +------+ + | Mikey Linares MD | PP | | + +------+ + Allergies No Known Allergies Current Medications + + +-------+---------+------+------+-------+ | Prescription | Sig. | Disp. | Refills | Star | End | Statu | | | | | | t | Date | s | | | | | | Date | | | + + +-------+---------+------+------+-------+ | insulin glargine | Inject 55 Units | | | | | Activ | | (LANTUS) 100 | under the skin | | | | | e | | units/mL injection | nightly. | | | | | | + + +-------+---------+------+------+-------+ | insulin aspart | Inject 12 Units | | | | | Activ | | (NOVOLOG) 100 | under the skin 3 | | | | | e | | units/mL injection | times daily (before | | | | | | | | meals). | | | | | | + + +-------+---------+------+------+-------+ | metFORMIN | Take 850 mg by mouth | | | | | Activ | | (GLUCOPHAGE) 850 mg | daily (with | | | | | e | | tablet | breakfast). | | | | | | + + +-------+---------+------+------+-------+ | glimepiride | Take 4 mg by mouth | | | | | Activ | | (AMARYL) 4 mg tablet | every morning | | | | | e | | | (before breakfast). | | | | | | | | | | | | | | + + +-------+---------+------+------+-------+ | aspirin 81 mg EC | Take 81 mg by mouth | | | | | Activ | | tablet | Daily. | | | | | e | + + +-------+---------+------+------+-------+ | lisinopril | Take 10 mg by mouth | | | | | Activ | | (PRINIVIL, ZESTRIL) | Daily. | | | | | e | | 10 mg tablet | | | | | | | + + +-------+---------+------+------+-------+ | FENOFIBRATE PO | Take 54 mg by mouth. | | | | | Activ | | | | | | | | e | + + +-------+---------+------+------+-------+ | citalopram | Take 20 mg by mouth | | | | | Activ | | (CELEXA) 20 mg | Daily. | | | | | e | | tablet | | | | | | | + + +-------+---------+------+------+-------+ | omeprazole | Take 20 mg by mouth | | | | | Activ | | (PRILOSEC) 20 mg | every morning | | | | | e | | capsule | (before breakfast). | | | | | | | | | | | | | | + + +-------+---------+------+------+-------+ | cyclobenzaprine | Take 10 mg by mouth | | | | | Activ | | (FLEXERIL) 10 mg | 3 times daily as | | | | | e | | tablet | needed. | | | | | | + + +-------+---------+------+------+-------+ | amitriptyline | Take 25 mg by mouth | | | | | Activ | | (ELAVIL) 25 mg | nightly. | | | | | e | | tablet | | | | | | | + + +-------+---------+------+------+-------+ | ibuprofen | Take 600 mg by mouth | | | | | Activ | | (ADVIL,MOTRIN) 600 | every 6 hours as | | | | | e | | MG tablet | needed. | | | | | | + + +-------+---------+------+------+-------+ | | Take 1 tablet by | | | | | Activ | | HYDROcodone-acetamin | mouth every 6 hours | | | | | e | | ophen (NORCO) 10-325 | as needed. | | | | | | | mg per tablet | | | | | | | + + +-------+---------+------+------+-------+ | albuterol | Inhale 2 puffs into | | | | | Activ | | (VENTOLIN HFA) 90 | the lungs every 6 | | | | | e | | mcg/puff inhaler | hours as needed. | | | | | | + + +-------+---------+------+------+-------+ Active Problems Not on file Social History + +-------+ +--------+------+ | Tobacco Use | Types | Packs/Day | Years | Date | | | | | Used | | + +-------+ +--------+------+ | Never Smoker | | | | | + +-------+ +--------+------+ + + +---------+ + | Alcohol Use | Drinks/We | oz/Week | Comments | | | ek | | | + + +---------+ + | No | | | | + + +---------+ + + + + | Sex Assigned at | Date Recorded | | | | + + + | Not on file | | + + + Last Filed Vital Signs + + + + | Vital Sign | Reading | Time Taken | + + + + | Blood Pressure | 114/59 | 10/22/2011299 PDT | + + + + | Pulse | 84 | 10/22/2011299 PDT | + + + + | Temperature | 36.8 C (98.2 F) | 10/21/20112212 PDT | + + + + | Respiratory Rate | 24 | 10/21/20112212 PDT | + + + + | Oxygen Saturation | 97% | 10/22/2011299 PDT | + + + + | Inhaled Oxygen | - | - | | Concentration | | | + + + + | Weight | 126.1 kg (278 lb) | 10/21/20112212 PDT | + + + + | Height | 170.2 cm (5' 7") | 10/21/20112212 PDT | + + + + | Body Mass Index | 43.54 | 10/21/20112212 PDT | + + + + Plan of Treatment + + + + + | Health Maintenance | Due Date | Last Done | Comments | + + + + + | Vaccine: | | | | | Dtap/Tdap/Td (1 - | 1 | | | | Tdap) | | | | + + + + + | CERVICAL CANCER | | | | | SCREENING (PAP EVERY | 3 | | | | 3 YEARS 21-64 ) | | | | + + + + + | Vaccine: Influenza | | | | | (Season Ended) | 8 | | | + + + + + Results Not on filefrom Last 3 Months Insurance + +--------+ +--------+ +---------+ | Payer | Benefi | Subscriber | Type | Phone | Address | | | t Plan | ID | | | | | | / | | | | | | | Group | | | | | + +--------+ +--------+ +---------+ | MEDICAID OUT OF | MEDICA | xxxxxxxx | Medica | [phone] | | | STATE | ID OUT | | id | [id number] | | | | OF | | | | | | | STATE | | | | | | | GENERI | | | | | | | C | | | | | + +--------+ +--------+ +---------+ | DIN[employer]UR[place]risti | PACIFI | xxxxxxxx | Medica | | | | MEDICAID HMO | CSOURC | | id | | | | | E MDCD | | | | | | | HMO | | | | | + +--------+ +--------+ +---------+ + +--------+ +--------+ + + | Guarantor Name | Accoun | Relation to | Date | Phone | Billing Address | | | t Type | Patient | of | | | | | | | | | | + +--------+ +--------+ + + | ARIAN SANCHEZ | Person | Self [birth year] Home: | [address] | | | al/Fam | | 1969 | [phone] [place] | | | christina | | | [address] | [place] [address] | + +--------+ +--------+ + +
--- OUTSIDE RECORDS SUMMARY | 2017-07-15 16:05 | XMS | Encounter Summary ---
Demographics + + + | Address | [address] [place] [address] | | | [place] [address] | + + + | Home Phone | | + + + | Preferred Language | Unknown | + + + | Marital Status | Single | + + + | Hindu Affiliation | NRP | + + + | Race | White | + + + | Ethnic Group | Not or | + + + Author + + + | Author | [facility] | + + + | Organization | [facility] | + + + | Address | Unknown | + + + | Phone | Unavailable | + + + Support + + + + + | Name | Relationship | Address | Phone | + + + + + | KRANTHI MONTEJO | ECON | [address] | | | | | [address], | | | | | [place] [address] | | + + + + + Care Team Providers + +------+ + | Care Warehouse Freight Handler Name | Role | Phone | + [...] | | | | | [address] [place], | [place] | | | | | [place] [address] | [address] | | | | | [phone] | [phone] | | | | | | | [...]
--- OUTSIDE RECORDS SUMMARY | 2017-07-15 16:05 | XMS | Encounter Summary ---
Demographics + + + | Address | [address] [place] [address] | | | [place] [address] | + + + | Home Phone | | + + + | Preferred Language | Unknown | + + + | Marital Status | Single | + + + | Rastafari Affiliation | NRP | + + + [...] + | KRANTHI MONTEJO | ECON | [address] | | | | | [address], | | | | | [place] [address] | | + + + + + Care Team Providers + +------+ + | Care Investment Banking Associate Name | Role | Phone | + +------+ + | Nichol Ordoñez PA-C | PCP | | + +------+ + Reason for Visit + + + | Reason | Comments | + + + | Lab Results | | + + + Encounter Details +--------+ + + + + | Date | Type | Department | Care Team | Description | +--------+ + + + + | 04/26/ | Telephone | [facility] | OrdoñezMariloue Chito, | Lab Results | | 2018 | | Medicine [address] | PA-C [address] | | | | | [address] [place], | [place], [place] | | | | | [place] [address] | [address] | | | | | [phone] | [phone] | | | | | | | [...]
--- OUTSIDE RECORDS SUMMARY | 2017-07-15 16:05 | XMS | Encounter Summary ---
Demographics + + + | Address | [address] [place] [address] | | | [place] [address] | + + + | Home Phone | | + + + | Preferred Language | Unknown | + + + | Marital Status | Single | + + + | Zoroastrianism Affiliation | NRP | + + + [...] + | KRANTHI MONTEJO | ECON | [address] | | | | | [address], | | | | | [place] [address] | | + + + + + Care Team Providers + +------+ + | Care Customs Inspector Name | Role | Phone | + +------+ + | Nichol Ordoñez PA-C | PCP | | + +------+ + Reason for Visit + + + | Reason | Comments | + + + | lot attendant | ED Followup | | Call | | + + + Encounter Details +--------+ + + + + | Date | Type | Department | Care Team | Description | +--------+ + + + + | 06/07/ | Patient | [facility] | Nichol Ordoñez, | lot attendant | | 2018 | Outreach | Medicine [address] | PA-C [address] | Call (ED Followup) | | | | [address] [place], | [place], [place] | | | | | [place] [address] | [address] | | | | | [phone] | | | | | | | [...]
--- OUTSIDE RECORDS SUMMARY | 2017-07-15 16:05 | XMS | Encounter Summary ---
Demographics + + + | Address | [address] | | | [place] [address] | + + + | Home Phone | | + + + | Preferred Language | Unknown | + + + | Marital Status | Single | + + + | Christianity Affiliation | NRP | + + + [...] + | KRANTHI MONTEJO | ECON | [address] | | | | | [address], | | | | | [place] [address] | | + + + + + Care Team Providers + +------+ + | Care Clinical Massage Therapist Name | Role | Phone | + +------+ + | Fior Arreola PA-C | PCP | | + +------+ + Reason for Visit + + + | Reason | Comments | + + + | Thigh Pain | | + + + Encounter Details +--------+ + + + + | Date | Type | Department | Care Team | Description | +--------+ + + + + | 06/04/ | Emergency | Emergency | JoãoLexy, | | | 2017 | | Department at [facility] | [place] [address] | | | | | Hospital [address] | [place], [place] | | | | | Street The | [address] | | | | | [place], [place] | [phone] | | | | | [address] | | | | | | [phone] | | | +--------+ + + + [...] + + + | Blood Pressure | 136/79 | 06/04/2017 1:57 PM PST | + + + + | Pulse | 85 | 06/04/2017 1:57 PM PST | + + + + | Temperature | 36.7 C (98.1 F) | 06/04/2017 1:57 PM PST | + + + + | Respiratory Rate | 16 | 06/04/2017 1:57 PM PST | + + + + | Oxygen Saturation | 96% | 06/04/2017 1:57 PM PST | + + + + | Inhaled Oxygen | - | - | | Concentration | | | + + + + | Weight | 121.6 kg (268 lb) | 06/04/2017 12:11 PM PST | + + + + | Height | 170.2 cm (5' 7") | 06/04/2017 12:11 PM PST | + + + + | Body Mass Index | 41.97 | 06/04/2017 12:11 PM PST | + + + + in this encounter Discharge Instructions The following attachments cannot be sent through Care Everywhere.Musculoskeletal Pain (Engl cait)in this encounter Medications at Time of Discharge + + + +---------+ + + | Medication | Sig. | Disp. | Refills | Start | End Date | | | | | | Date | | + + + +---------+ + + | ARIPiprazole | Take 1 tablet by | 1 | 0 | 01/23/20 | | | (ABILIFY) 30 mg oral | mouth once daily. | tablet | | 17 | | | tablet | | | | | | + + + +---------+ + + | aspirin EC 81 mg | Take 1 tablet by | 30 | 11 | 11/03/19 | | | oral tablet,delayed | mouth once daily. | tablet | | 17 | | | release (DR/EC) | | | | | | + + + +---------+ + + | atorvastatin 20 mg | Take 1 tablet by | 90 | 3 | 05/04/19 | | | oral | mouth once daily. | tablet | | 18 | | | tabletIndications: | Indications: | | | | | | hyperlipidemia | hyperlipidemia | | | | | + + + +---------+ + + | benztropine 1 mg | Take 1 mg by mouth | | | 04/08/19 | | | oral tablet | once daily. | | | 18 | | + + + +---------+ + + | Blood Sugar | TEST BLOOD GLUCOSE | 360 | 11 | 11/03/19 | | | Diagnostic | DIRECTED WITH | each | | 17 | | | (FREESTYLE LITE | EACH MEAL AND BEFORE | | | | | | STRIPS) | BEDTIME(UP TO 6 | | | | | | stripIndications: | TIMES DAILY) | | | | | | type 2 diabetes | Indications: type 2 | | | | | | mellitus | diabetes mellitus | | | | | + + + +---------+ + + | canagliflozin | Take 1 tablet by | 30 | 5 | 04/22/19 | | | (INVOKANA) 100 mg | mouth once daily. | tablet | | 18 | | | oral | Indications: type 2 | | | | | | tabletIndications: | diabetes mellitus | | | | | | type 2 diabetes | | | | | | | mellitus | | | | | | + + + +---------+ + + | CYCLOBENZAPRINE 10 | TAKE 1 TABLET BY | 90 | 5 | 05/04/19 | | | mg oral tablet | MOUTH THREE TIMES | tablet | | 18 | | | | DAILY | | | | | + + + +---------+ + + | gabapentin 300 mg | Take 2 capsules by | 240 | 2 | 05/04/19 | | | oral | mouth four times | capsule | | 18 | | | capsuleIndications: | daily as needed | | | | | | RLS, anxiety | (anxiety). | | | | | | | Indications: RLS, | | | | | | | anxiety | | | | | + + + +---------+ + + | hydrocortisone 1 % | Use qtip to apply | 30 g | 0 | 03/01/20 | | | topical | small amount to | | | 17 | | | creamIndications: | external ear, outer | | | | | | Psoriasis of scalp | ear canal, and | | | | | | | behind ears | | | | | + + + +---------+ + + | insulin glargine | INJECT 70 UNITS | 40 mL | 5 | 04/22/19 | | | (LANTUS) 100 unit/mL | UNDER THE SKIN EVERY | | | 18 | | | subcutaneous | MORNING AND 70 | | | | | | solutionIndications: | UNITS EVERY EVENING | | | | | | type 2 diabetes | Indications: type 2 | | | | | | mellitus | diabetes mellitus | | | | | + + + +---------+ + + | Insulin | Use to administer | 120 | 11 | 06/01/19 | | | Syringe-Needle U-100 | insulin four times | Syringe | | 17 | | | 0.3 mL 28 gauge x | daily | | | | | | 04/06" miscellaneous | | | | | | | (misc) syringe | | | | | | + + + +---------+ + + | Insulin | Use as directed. | 100 | 11 | 01/14/20 | | | Syringe-Needle U-100 | | each | | 17 | | | 1 mL 31 gauge x | | | | | | | 16 syringe | | | | | | + + + +---------+ + + | | INHALE 1 PUFF BY | 1 | 11 | 05/04/19 | | | ipratropium-albutero | MOUTH FOUR TIMES | Inhaler | | 18 | | | l (COMBIVENT | DAILY. MAY TAKE | | | | | | RESPIMAT) 20-100 | ADDITIONAL PUFFS | | | | | | mcg/actuation | NEEDED. NOT TO | | | | | | inhalation mist | EXCEED 6 PUFFS IN 24 | | | | | | | HOURS | | | | | + + + +---------+ + + | ISOSORBIDE | TAKE 1 TABLET BY | 180 | 3 | 11/03/19 | | | MONONITRATE CR 30 mg | MOUTH TWICE DAILY | tablet | | 17 | | | oral tablet | | | | | | | extended release 24 | | | | | | | hr | | | | | | + + + +---------+ + + | levonorgestrel | 1 each by | 1 each | 0 | 01/23/20 | | | (MIRENA) 20 mcg/24 | intrauterine route | | | 17 | | | hr (5 years) | once for 1 dose. | | | | | | intrauterine | Placed 06/2015 | | | | | | intrauterine device | | | | | | + + + +---------+ + + | METFORMIN 850 mg | TAKE 1 TABLET BY | 90 | 5 | 03/05/20 | | | oral tablet | MOUTH THREE TIMES | tablet | | 17 | | | | DAILY WITH BREAKFAST | | | | | | | AND DINNER | | | | | + + + +---------+ + + | METOPROLOL | TAKE 1 TABLET BY | 180 | 1 | 02/05/20 | | | TARTRATE 25 mg oral | MOUTH TWICE DAILY | tablet | | 17 | | | tablet | | | | | | + + + +---------+ + + | PRAZOSIN 2 mg oral | TAKE 2 CAPSULES BY | 60 | 5 | 06/02/19 | | | capsule | MOUTH EVERY NIGHT AT | capsule | | 18 | | | | BEDTIME FOR CHRONIC | | | | | | | PTSD WITH TRAUMA | | | | | | | N[place]MARE | | | | | + + + +---------+ + + | traMADol 50 mg | Take 2 tablets by | 56 | 0 | 06/02/19 | | | oral tablet | mouth once daily as | tablet | | 18 | | | | needed for moderate | | | | | | | pain. Must last | | | | | | | until 06/30/17 | | | | | + + + +---------+ + + as of this encounter Plan of Treatment Not on fileas of this encounter Results US DOPPLER LOWER EXTREMITY RT (06/04/2017 1:33 PM) + + + | Specimen | Performing Laboratory | + + + | | [facility] DEPARTMENT OF RADIOLOGY | + + + + + | Narrative | + + | [address] | | [place] [address] | | [phone] Name: | | STEPHANY SANCHEZ Phys: LEXY HALEY : | | 1970 Sex: F CSN: [id number] MR# [id number] | | Exam Date: 06/04/2017 EXAM: US [...] MD Transcribed Date/Time: 06/04/2017 13:54 | | Yarn Salvager: FLUENCY | + + + + | Procedure Note | + + | Interface, Radiology Results - 06/04/2017 1:59 PM PST [address] | | [place] [address] | | Name: STEPHANY SANCHEZ Phys: LEXY HALEY : 1970 Sex: F | | CSN: [id number] MR# [id number] Exam Date: 06/04/2017 EXAM:US DOPPLER LOWER | [...] | | |Transcribed Date/Time: 06/04/2017 13:54 | |Yarn Salvager: FLUENCY | | | | | | | + + ED INFORMATION EXCHANGE (06/04/2017 12:06 PM) + + + + | Component | Value | Ref Range | + + + + | SWATI PID | [id number] ([id number]) | | + + + + + + + | Specimen | Performing Laboratory | + + + | | [facility] [address] | | [address] [place] [address] | + + + + + | Narrative | + + | Guidelines Source: [facility] Guidelines Date: 12/19/2015 Care | | Recommendation: - This patient has been identified as having >5 ED | | visits within the past year at EDs in [facility]. - Recommend no routine | | medication [...] Substances (E-104.00). - Please | | utilize [facility] website to view prescription acquisition. - Restrict use of | | opioids in ED to only obvious trauma or severe medical issues - Please certified alcohol and drug counselor | | the patient about appropriate use of health care services as warranted - | | Encourage patient to establish and then seek care from their community provider to | | improve continuity of care. 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 | | [place] Emergency [address]. POSS BLOOD CLOT TO R LEG, SWOLLEN/PAINFUL 03/13/2017 | | 13:30 [facility] [place]. | | [place] Emergency -Periapical abscess without sinus | | | | -Nicotine | | dependence, cigarettes, uncomplicated | | | | -OTHER | | SPECIFIED DISORDERS OF TEETH AND SUPPORTING | | | | STRUCTURES | | | | -Dental caries, | | unspecified ED VISIT COUNT (12 MO.) Visits Location | | ------ --------- 1 [facility]. 2 [facility] | | [facility]. 1 [facility] 1 [facility] | | [facility] H 1 [facility] 1 [facility] | | [facility] 1 [facility] 8 Total Note: Visits | | indicate total known visits. | | CARE | | PROVIDERS | | Name | | Phone Type Service | | Dates | | ---- | | | | ----- ---- LEGACY | | [facility] | | Unknown Primary Care Unknown - Current FIOR [place] | | [facility] at [facility] | | GROUP Unknown Primary | | Care Unknown - Current FIOR ARREOLA at [facility] | | [place] [phone] Primary Care 01/11/2015 - | | Current [facility] | | [phone] Primary Care 08/22/2011 | | - Current RENNY MARI at [facility] PHYSICIAN | | SERVICES [phone] Specialist 09/11/2013 - | | Current NONSTAFF | | PHYSICIAN | | Unknown Primary Care Unknown - Current | + + in this encounter Visit Diagnoses + + | Diagnosis | + + | Musculoskeletal pain of right thigh - Primary | + +
--- OUTSIDE RECORDS SUMMARY | 2017-07-15 16:05 | XMS | Encounter Summary ---
Demographics + + + | Address | [address] [place] | | | [place] [address] | + + + | Home Phone | | + + + | Preferred Language | Unknown | + + + | Marital Status | Single | + + + | Religion Affiliation | NRP | + + + | Race | White | + + + | Ethnic Group | Not or | + + + Author + + + | Author | [facility] | + + + | Organization | [facility] | + + + | Address | Unknown | + + + | Phone | Unavailable | + + + Support + + + + + | Name | Relationship | Address | Phone | + + + + + | KRANTHI MONTEJO | ECON | [address] | | | | | [address], | | | | | [place] [address] | | + + + + + Care Team Providers + +------+ + | Care Hand Leather Trimmer Name | Role | Phone | + +------+ + | Nichol Ordoñez PA-C | PCP | | + +------+ + Reason for Visit + + + | Reason | Comments | + + + | Refill Request | tramadol and cyclobenzaprine | + + + Encounter Details +--------+--------+ + + + | Date | Type | Department | Care Team | Description | +--------+--------+ + + + | 04/30/ | Refill | [facility] | Nichol Ordoñez, | Refill Request | | 2017 | | Medicine [address] | PA-C [address] | (tramadol and | | | | [address] [place], | [place], [place] | cyclobenzaprine) | | | | [place] [address] | [address] | | | | | [phone] | [phone] | | | | | | | [...]
--- OUTSIDE RECORDS SUMMARY | 2017-07-15 16:05 | XMS | Encounter Summary ---
Demographics + + + | Address | [address] [place] [address] | | | [place] [address] | + + + | Home Phone | | + + + | Preferred Language | Unknown | + + + | Marital Status | Single | + + + | Gnosticism Affiliation | NRP | + + + | Race | White | + + + | Ethnic Group | Not or | + + + Author + + + | Author | [facility] | + + + | Organization | [facility] | + + + | Address | Unknown | + + + | Phone | Unavailable | + + + Support + + + + + | Name | Relationship | Address | Phone | + + + + + | KRANTHI MONTEJO | ECON | [address] | | | | | [address], | | | | | [place] [address] | | + + + + + Care Team Providers + +------+ + | Care Destination Imagination Coordinator Name | Role | Phone | + [...] | | | | | [address] [place], | [place] | | | | | [place] [address] | [address] | | | | | [phone] | [phone] | | | | | | | [...]
--- OUTSIDE RECORDS SUMMARY | 2017-07-15 16:05 | XMS | Encounter Summary ---
Demographics + + + | Address | [address] | | | [place] [address] | + + + | Home Phone | | + + + | Preferred Language | Unknown | + + + | Marital Status | Single | + + + | Faith Affiliation | NRP | + + + | Race | White | + + + | Ethnic Group | Not or | + + + Author + + + | Author | [facility] | + + + | Organization | [facility] | + + + | Address | Unknown | + + + | Phone | Unavailable | + + + Support + + + + + | Name | Relationship | Address | Phone | + + + + + | KRANTHI MONTEJO | ECON | [address] | | | | | [address], | | | | | [place] [address] | | + + + + + Care Team Providers + +------+ + | Care Dipper Operator Name | Role | Phone | + +------+ + | Vicente Ordoñez PA-C | PCP | | + +------+ + Reason for Referral Consultation (Routine) + +--------+ + + + + | Status | Reason | Specialty | Diagnoses / | Referred By | Referred To | | | | | Procedures | Contact | Contact | + +--------+ + + + + | Authorized | | Endocrinology | Diagnoses | [facility] | [facility] | | | | , Diabetes & | | Vicente Dale, | Diabetes Educ | | | | Metabolism | Uncontrolled | [facility] | [address] | | | | | type [address] | [address] | | | | | diabetes | [place], | [place], | | | | | mellitus | [place] | [place] [address] | | | | | without | [address] | Phone: | | | | | complication | Phone: | [phone] | | | | | , with | [phone] | Fax: | | | | | long-term | Fax: | [phone] | | | | | current use | [phone] | | | | | | of insulin | | | | | | | ([facility]) | | | | | | | Procedures | | | | | | | CONSULT TO | | | | | | | DIABETES | | | + +--------+ + + + + Reason for Visit + + + | Reason | Comments | + + + | Diabetes mellitus | with sabine and vicente. | + + + | Cough | x2 days, c/o runny nose, cough, sorethroat, left ear drainage. | | | did not notice what color drainage is. | + + + Encounter Details +--------+---------+ + + + | Date | Type | Department | Care Team | Description | +--------+---------+ + + + | 04/22/ | Office | [facility] | Vicente Ordoñez, | Uncontrolled type 2 | | 2018 | Visit | Medicine [address] | PA-C [address] | diabetes mellitus | | | | [address] [place], | [place], [place] | without | | | | [place] [address] | [address] | complication, with | | | | [phone] | [phone] | long-term current | | | | [...] | | | | Flu-like symptoms | +--------+---------+ + + + Social History [...] + + + | Blood Pressure | 98/60 | 04/22/2017 12:42 PM PST | + + + + | Pulse | 81 | 04/22/2017 12:42 PM PST | + + + + | Temperature | 36.8 C (98.3 F) | 04/22/2017 12:42 PM PST | + + + + | Respiratory Rate | 16 | 04/22/2017 12:42 PM PST | + + + + | Oxygen Saturation | 95% | 04/22/2017 12:42 PM PST | + + + + | Inhaled Oxygen | - | - | | Concentration | | | + + + + | Weight | 128.1 kg (282 lb 6.4 | 04/22/2017 12:42 PM PST | | | oz) | | + + + + | Height | - | - | + + + + | Body Mass Index | 43.58 | 04/22/2017 12:42 PM PST | + + + + in this encounter Instructions Patient Instructions - Carleen Coleman, KRISTEN - 04/22/2017 1:00 PM PSTDiabetes Educati on Instructions: Thank you for meeting with the early childhood educator aide today. These are the healthy lifestyle goa ls that we set today to help control your blood sugars. 1. Your blood sugars are in excellent control! Good Job! 2. Continue with your daily walking and healthy eating. 3. I sent a referral for diabetes classes, they will call you to get set up. We will review these goals at your next diabetes education visit. Carleen Alvarez, KRISTEN, CDE [facility] 1. Uncontrolled type 2 diabetes mellitus without complication, with long-term current use o f insulin ([facility]) Lab work was completed today. We will call you with results. Medications have been refilled - no medication changes at this time. Continue to follow a healthy lifestyle. Keep your silverio ointment for your eye exam in May. - CONSULT TO DIABETES - canagliflozin (INVOKANA) 100 mg oral tablet; Take 1 tablet by mouth once daily. Indicatio ns: type 2 diabetes mellitus Dispense: 30 tablet; Refill: 5 - NOVOLOG 100 unit/mL subcutaneous solution; Inject 50-60 Units under the skin (SUBC) three times daily before meals. Plus sliding scale Indications: type 2 diabetes mellitus Dispens e: 50 mL; Refill: 2 - insulin glargine (LANTUS) 100 unit/mL subcutaneous solution; INJECT 70 UNITS UNDER THE SK IN EVERY MORNING AND 70 UNITS EVERY EVENING Indications: type 2 diabetes mellitus Dispense: 40 mL; Refill: 5 2. Essential hypertension Low today - possibly due to you being a little dry as you're fasting and haven't had much t o drink. Also, being sick may be contributing. I recommend checking your blood pressure at t he store or come into our office so we can make sure it is not stay low like it was in offic e today. If you notice any dizziness/fatigue after your cold resolves, let me know as we may need to decrease your blood pressure medicines. 3. Flu-like symptoms Rapid flu test was negative. This is likely a bad virus cold. Please continue supportive ca re including your inhalers, nasal saline. I would recommend using your albuterol nebulizer e very 4-6 hours, even if your breathing is doing good. Use a humidifier and/or steamy showers to help keep your lungs open as well. I have prescribed tessalon perles to help with the co ugh. Unfortunately, I cannot prescribe codeine cough syrup as it can interact with some of y our mood medications. Please follow up if your breathing worsens or new concerns arise. - RAPID FLU; Future in this encounter Progress Notes Vicente Ordoñez PA-C - 04/22/2017 1:00 PM PSTFormatting of this note may be different fr om the original. SUBJECTIVE CC: Chief Complaint Patient presents with Diabetes mellitus with jessica. Cough x2 days, c/o runny nose, cough, sorethroat, left ear drainage. did not notice what color drainage is. 1. Diabetes Education Stephany Medina is a 47 y.o. year old F who presents today for visit with myself and Ch jr Alvarez RD, please refer to her documentation for further detail. Her blood sug ars have been doing well. They have been a slightly elevated the last few days due to illnes s. She has been tapering down her gabapentin and her anxiety is still doing well. She is marvin n to 8 capsules instead of 16. She was started on benztropine in addition to Abilify to help with her anxiety and restlessness as well. She complains of runny nose, sore throat, cough, fever (off and on-101 highest- came down w ith medicine), vomiting (off and on) and left ear drainage x 2 days. Mild myalgias. Her nicci thing has been doing ok despite illness. Denies wheezing or chest tightness, diarrhea, heada ches, ear pain. She has been using her inhalers and nebulizer which have been helpful. Review of Systems Constitutional: Positive for fever. Negative for chills, diaphoresis, malaise/fatigue and w eight loss. HENT: Positive for congestion, ear discharge and sore throat. Negative for ear pain, hearin g loss, nosebleeds and sinus pain. Eyes: Negative for blurred vision, double vision, photophobia, pain, discharge and redness. Respiratory: Positive for cough and sputum production. Negative for shortness of breath and wheezing. Cardiovascular: Negative for chest pain, palpitations, orthopnea, claudication and leg swel ling. Gastrointestinal: Positive for vomiting. Negative for abdominal pain, constipation, diarrhe a, heartburn and nausea. Genitourinary: Negative for hematuria. Musculoskeletal: Positive for myalgias. Negative for back pain. Skin: Negative for rash. Neurological: Positive for dizziness and headaches. Negative for tremors, speech change, fo donovan weakness and weakness. Psychiatric/Behavioral: Negative for depression and memory loss. The patient is not nervous /anxious and does not have insomnia. OBJECTIVE Lab Results Component Value Date A1C 6.8 01/22/2017 A1C 8.3 07/22/2016 A1C 8.8 05/04/2016 A1C 12.0 01/13/2016 Lab Results Component Value Date CR 0.6 01/22/2017 Lab Results Component Value Date CHOL 163 05/04/2016 LDL 70 05/04/2016 HDL 60 05/04/2016 TRI 165 05/04/2016 Lab Results Component Value Date URINEPROTEIN Negative 06/05/2016 Current Medication List Name Sig ALBUTEROL SULFATE 0.63 MG/3 ML SOLUTION FOR NEBULIZATION Inhale 3 mL every four hours as ne eded. ARIPIPRAZOLE 30 MG TABLET Take 1 tablet by mouth once daily. ASPIRIN 81 MG TABLET,DELAYED RELEASE Take 1 tablet by mouth once daily. ATORVASTATIN 20 MG TABLET Take 1 tablet by mouth once daily. Indications: hyperlipidemia BENZTROPINE 1 MG TABLET Take 1 mg by mouth once daily. BLOOD SUGAR DIAGNOSTIC STRIPS TEST BLOOD GLUCOSE DIRECTED WITH EACH MEAL AND BEFORE BEDT NOEMY(UP TO 6 TIMES DAILY) Indications: type 2 diabetes mellitus BUDESONIDE-FORMOTEROL HFA 160 MCG-4.5 MCG/ACTUATION AEROSOL INHALER Inhale 2 puffs by mouth four times daily. CANAGLIFLOZIN 100 MG TABLET Take 1 tablet by mouth once daily. Indications: type 2 diabetes mellitus CLOBETASOL 0.05 % SCALP SOLUTION Apply to affected area two times daily Apply for up to 2 w eeks COMBIVENT RESPIMAT 100 MCG-20 MCG/ACTUATION AEROSOL INHALER INHALE 1 PUFF BY MOUTH FOUR YARI ES DAILY. MAY TAKE ADDITIONAL PUFFS NEEDED. NOT TO EXCEED 6 PUFFS IN 24 HOURS CYCLOBENZAPRINE 10 MG TABLET TAKE 1 TABLET BY MOUTH THREE TIMES DAILY GABAPENTIN 300 MG CAPSULE Take 4 capsules by mouth three times daily. Indications: RLS, anx iety HYDROCORTISONE 1 % TOPICAL CREAM Use qtip to apply small amount to external ear, outer ear canal, and behind ears INSULIN SYRINGE-NEEDLE U-100 0.3 ML 28 GAUGE X 1/2" Use to administer insulin four times da christina INSULIN SYRINGE-NEEDLE U-100 1 ML 31 GAUGE X 5/16" Use as directed. ISOSORBIDE MONONITRATE ER 30 MG TABLET,EXTENDED RELEASE 24 HR TAKE 1 TABLET BY MOUTH TWICE DAILY LANTUS 100 UNIT/ML SUBCUTANEOUS SOLUTION INJECT 70 UNITS UNDER THE SKIN EVERY MORNING AND 7 0 UNITS EVERY EVENING LEVONORGESTREL 20 MCG/24 HR (5 YEARS) INTRAUTERINE DEVICE 1 each by intrauterine route once for 1 dose. Placed 06/2015 MECLIZINE 12.5 MG TABLET Take 1 tablet by mouth once daily as needed for nausea/vomiting (d izziness) METFORMIN 850 MG TABLET TAKE 1 TABLET BY MOUTH THREE TIMES DAILY WITH BREAKFAST AND DINNER METOPROLOL TARTRATE 25 MG TABLET TAKE 1 TABLET BY MOUTH TWICE DAILY NOVOLOG 100 UNIT/ML SUBCUTANEOUS SOLUTION INJECT 50 UNITS UNDER THE SKIN THREE TIMES DAILY BEFORE MEALS, PLUS SLIDING SCALE OMEPRAZOLE 20 MG CAPSULE,DELAYED RELEASE TAKE 1 CAPSULE BY MOUTH EVERY DAY PRAZOSIN 2 MG CAPSULE TAKE 2 CAPSULES BY MOUTH EVERY NIGHT AT BEDTIME FOR CHRONIC PTSD WITH TRAUMA NIGHTMARES TRAMADOL 50 MG TABLET Take 2 tablets by mouth twice daily as needed for moderate pain. Must last until 04/30/17 PHYSICAL EXAM BP 98/60 | Pulse 81 | Temp (Src) 36.8 C (98.3 F) (Axillary) | RR 16 | Wt 128.1 kg (282 lb 6.4 oz) | SpO2 95% | BMI 43.58 kg/(m^2) General appearance: obese, without distress. HEENT: Eyes: Sclera nonicteric and [...] cervica l chains, or supraclavicular lymphadenopathy or tenderness. Pulm: Regular, nonlabored breathing without accessory muscle use. CTA A/P/L bilaterally wit hout wheezes, crackles, rubs or rhonchi. Nails smooth without clubbing, spooning or cyanosis . Capillary refill < 2 seconds. Cardiac: RRR without murmur, rubs or gallops.Radial pulses 2+ and equal bilaterally. Abdomen: Contour uniform. Normoactive bowel sounds x 4 quadrants, no rubs or bruits. Soft, nontender, nondistended without masses or rigidity on palpation. No hepatosplenomegaly. Skin: Skin warm, smooth and firm with resilient turgor. No rash. Neurologic: Alert and oriented x 3. Psych: Mildly flattened affect, good grooming, normal speech pattern and content, normal th ought patterns, normal perception, good insight and normal reasoning. ASSESSMENT/PLAN Diabetes Education Instructions: Thank you for meeting with the early childhood educator aide today. These are the healthy lifestyle goa ls that we set today to help control your blood sugars. 1. Your blood sugars are in excellent control! Good Job! 2. Continue with your daily walking and healthy eating. 3. I sent a referral for diabetes classes, they will call you to get set up. We will review these goals at your next diabetes education visit. Carleen Alvarez RD, CDE [facility] 1. Uncontrolled type 2 diabetes mellitus without complication, with long-term current use o f insulin (HCC) Lab work was completed today. We will call you with results. Medications have been refilled - no medication changes at this time. Continue to follow a healthy lifestyle. Keep your silverio ointment for your eye exam in May. - CONSULT TO DIABETES - canagliflozin (INVOKANA) 100 mg oral tablet; Take 1 tablet by mouth once daily. Indicatio ns: type 2 diabetes mellitus Dispense: 30 tablet; Refill: 5 - NOVOLOG 100 unit/mL subcutaneous solution; Inject 50-60 Units under the skin (SUBC) three times daily before meals. Plus sliding scale Indications: type 2 diabetes mellitus Dispens e: 50 mL; Refill: 2 - insulin glargine (LANTUS) 100 unit/mL subcutaneous solution; INJECT 70 UNITS UNDER THE SK IN EVERY MORNING AND 70 UNITS EVERY EVENING Indications: type 2 diabetes mellitus Dispense: 40 mL; Refill: 5 2. Essential hypertension Low today - possibly due to you being a little dry as you're fasting and haven't had much t o drink. Also, being sick may be contributing. I recommend checking your blood pressure at t he store or come into our office so we can make sure it is not stay low like it was in offic e today. If you notice any dizziness/fatigue after your cold resolves, let me know as we may need to decrease your blood pressure medicines. 3. Flu-like symptoms Rapid flu test was negative. This is likely a bad virus cold. Please continue supportive ca re including your inhalers, nasal saline. I would recommend using your albuterol nebulizer e very 4-6 hours, even if your breathing is doing good. Use a humidifier and/or steamy showers to help keep your lungs open as well. I have prescribed tessalon perles to help with the co ugh. Unfortunately, I cannot prescribe codeine cough syrup as it can interact with some of y our mood medications. Please follow up if your breathing worsens or new concerns arise. - RAPID FLU; Future >50% of time spent in counseling and coordination of care with content documented. Total ti me 55 minutes. I, Alyssa Lujan WRAPPER SIZER, am functioning as a scribe for Vicente Ordoñez PA-C. I have reviewed and verified the above scribed note of my visit with this patient. Vicente Ordoñez PA-C [facility] [address] [place] [address] Carleen Coleman, RD - 04/22/2017 1:00 PM PSTFormatting of this note may be differen t from the original. Patient Name: Stephany Medina : 1970 Date: 04/22/2017 Time: In: [address] Education Visit Type: Follow Up Type of Diabetes:Type 2 Subjective: Stephany reports that she has major depressive disorder and her took over her care, l ocked up her medications and administration of her medications about 6 months ago and now sh e's doing much better. Diet Recall: drinks alcohol occasionally- 3 times a year. Smoking: no, Chewing Tobacco no Marijuana: donis ry other day- helps with anxiety Diabetes Medications Reports Taking: Metformin 850mg TID Invokana 100mg Lantus 70 units BID Novolog 50 units each meal plus correction Reports takes insulin regularly? yes Uses an insulin vial and syringe. ASA=yes. ASA for those with CVD or if >40 years with other risk factors: FH CVD, HT, smokin g, hyperlipidemia, albuminuria Statin=yes. ANDREAS/ARB=no Hypoglycemia:rare Activity Level: Type: walking daily for at least one hour spread out through the day Comprehensive DM Education completed? no Objective: Lab Results Component Value Date A1C 6.8 01/22/2017 A1C 8.3 07/22/2016 A1C 8.8 05/04/2016 A1C 12.0 01/13/2016 Lab Results Component Value Date CHOL 163 05/04/2016 LDL 70 05/04/2016 HDL 60 05/04/2016 TRI 165 05/04/2016 Wt Readings from Last 4 Encounters: 04/22/17 128.1 kg (282 lb 6.4 oz) 04/08/17 128.2 kg (282 lb 9.6 oz) 03/01/17 128 kg (282 lb 3.2 oz) 01/22/17 124.9 kg (275 lb 6.4 oz) Body mass index is 43.58 kg/m. BP Readings from Last 4 Encounters: 04/22/17 98/60 04/08/17 120/74 03/25/17 122/78 03/01/17 102/70 Lab Results Component Value Date GLU 109 (H) 01/22/2017 Lab Results Component Value Date CR 0.6 01/22/2017 CBG Monitoring: Meter Type: freestyle lite Monitors B-6 times per day. BG Log: Has been running a little higher, but this week doing much better staying 80-13 7 Learning Barriers: none Assessment/Educational Needs/Intervention/Ed/CounselingthisSession Blood sugars are in excellent control on her current regimen. She is walking daily and work ing on healthy eating. She will be on the road from June to January with her who do [email or web address]. She would like to sign up and take diabetes classes when she returns this fall . Today's Self-Management Goal Settin. Your blood sugars are in excellent control! Good Job! 2. Continue with your daily walking and healthy eating. 3. I sent a referral for diabetes classes, they will call you to get set up. See patient After Visit Summary Out 1400 Total time: 45 minutes Counseled greater than 50% of the time and documented content. Protective Signal Installer Helper: Carleen Alvarez RD,CDE Patient's PCP: Vicente Ordoñez PA-C in this encounter Plan of Treatment Not on [...] | + + + | Swab | [facility] [address] [place] [address] [place], | | | [place] [address] | + + + in this encounter Visit Diagnoses + + | Diagnosis | + + | Uncontrolled type 2 diabetes mellitus without complication, with long-term current use | | of insulin (HCC) - Primary | + + | Type 2 diabetes mellitus without complication, with long-term current use of insulin | | (HCC) | + + | Essential hypertension | + + | Flu-like symptoms | + + | Influenza with other respiratory manifestations | + +
--- OUTSIDE RECORDS SUMMARY | 2017-07-15 16:05 | XMS | Encounter Summary ---
Demographics + + + | Address | [address] | | | [place] [address] | + + + | Home Phone | | + + + | Preferred Language | Unknown | + + + | Marital Status | Single | + + + | Jain Affiliation | NRP | + + + | Race | White | + + + | Ethnic Group | Not or | + + + Author + + + | Author | [facility] | + + + | Organization | [facility] | + + + | Address | Unknown | + + + | Phone | Unavailable | + + + Support + + + + + | Name | Relationship | Address | Phone | + + + + + | KRANTHI MONTEJO | ECON | [address] | | | | | [address], | | | | | [place] [address] | | + + + + + Care Team Providers + +------+ + | Care Senior Energy Analyst Name | Role | Phone | + +------+ + | Nichol Ordoñez PA-C | PCP | | + +------+ + Reason for Visit + + + | Reason | Comments | + + + | Hypoglycemia | | + + + Encounter Details +--------+ + + + + | Date | Type | Department | Care Team | Description | +--------+ + + + + | 06/08/ | Telephone | [facility] | ArechigaAnnita FNP | Hypoglycemia | | 2018 | | [facility] | [address] | | | | | Internal Medicine | [place], [place] | | | | | [address] | [address] | | | | | [place], [place] | [phone] | | | | | [address] | | | | | | [phone] | | | +--------+ + + + [...]
--- OUTSIDE RECORDS SUMMARY | 2017-07-15 16:05 | XMS | Clinical Summary ---
Demographics + + + | Address | [address] | | | [place] [address] | + + + | Home Phone | | + + + | Preferred Language | Unknown | + + + | Marital Status | Single | + + + | Hoahaoism Affiliation | Unknown | + + + | Race | Unknown | + + + | Ethnic Group | Unknown | + + + Author + + + | Author | [facility] | + + + | Organization | [facility] [employer] [facility] | + + + | Address | Unknown | + + + | Phone | Unavailable | + + + Support + + +---------+ + | Name | Relationship | Address | Phone | + + +---------+ + | Hardeep Glass | ECON | Unknown | | + + +---------+ + Care Team Providers + +------+ + | Care Manager Coding Name | Role | Phone | + +------+ + | [facility] Unavailable | | Community | | | + +------+ + Allergies No Known Allergies Current Medications + + +-------+---------+------+------+-------+ | Prescription | Sig. | Disp. | Refills | Star | End | Statu | | | | | | t | Date | s | | | | | | Date | | | + + +-------+---------+------+------+-------+ | Oxygen (outpatient | Inhale into the | | | | | Activ | | therapy) | lungs as needed. | | | | | e | + + +-------+---------+------+------+-------+ | insulin glargine | Inject 60 Units into | | | | | Activ | | (LANTUS) 100 UNIT/ML | the skin nightly. | | | | | e | | injection | | | | | | | + + +-------+---------+------+------+-------+ | insulin aspart | Inject into the | | | | | Activ | | (NOVOLOG) 100 | skin 3 (three) times | | | | | e | | UNIT/ML injection | daily before meals. | | | | | | | | Sliding scale | | | | | | + + +-------+---------+------+------+-------+ | metFORMIN | Take 850 mg by mouth | | | | | Activ | | (GLUCOPHAGE) 850 MG | 3 (three) times | | | | | e | | tablet | daily. | | | | | | + + +-------+---------+------+------+-------+ | Canagliflozin | Take 100 mg by mouth | | | | | Activ | | (INVOKANA) 100 MG | every morning | | | | | e | | tablet | before breakfast. | | | | | | + + +-------+---------+------+------+-------+ | metoprolol | Take by mouth 2 | | | | | Activ | | (LOPRESSOR) 25 MG | (two) times daily. | | | | | e | | tablet | Dose unknown | | | | | | + + +-------+---------+------+------+-------+ | venlafaxine | Take 150 mg by mouth | | | | | Activ | | (EFFEXOR-XR) 150 MG | daily with | | | | | e | | 24 hr capsule | breakfast. | | | | | | + + +-------+---------+------+------+-------+ | gabapentin | Take 600 mg by mouth | | | | | Activ | | (NEURONTIN) 300 MG | 3 (three) times | | | | | e | | capsule | daily. | | | | | | + + +-------+---------+------+------+-------+ | amitriptyline | Take 50 mg by mouth | | | | | Activ | | (ELAVIL) 50 MG | nightly. | | | | | e | | tablet | | | | | | | + + +-------+---------+------+------+-------+ | cyclobenzaprine | Take 10 mg by mouth | | | | | Activ | | (FLEXERIL) 10 MG | 3 (three) times | | | | | e | | tablet | daily as needed for | | | | | | | | Muscle spasms. | | | | | | + + +-------+---------+------+------+-------+ | | Inhale 2 puffs into | | | | | Activ | | budesonide-formotero | the lungs 4 (four) | | | | | e | | l (SYMBICORT) | times daily. | | | | | | | 160-4.5 MCG/ACT | | | | | | | | inhaler | | | | | | | + + +-------+---------+------+------+-------+ | | Inhale 2 puffs into | | | | | Activ | | ipratropium-albutero | the lungs 2 (two) | | | | | e | | l (COMBIVENT) 18-103 | times daily. | | | | | | | MCG/ACT inhaler | | | | | | | + + +-------+---------+------+------+-------+ | lisinopril | Take 5 mg by mouth | | | | | Activ | | (ZESTRIL) 5 MG | daily. | | | | | e | | tablet | | | | | | | + + +-------+---------+------+------+-------+ | aspirin 81 MG | Take 81 mg by mouth | | | | | Activ | | tablet | daily. | | | | | e | + + +-------+---------+------+------+-------+ | traMADol (ULTRAM) | Take 100 mg by mouth | | | | | Activ | | 50 MG tablet | 4 (four) times | | | | | e | | | daily as needed for | | | | | | | | Pain. | | | | | | + + +-------+---------+------+------+-------+ | prazosin | Take 4 mg by mouth. | | | | | Activ | | (MINIPRESS) 1 MG | | | | | | e | | capsule | | | | | | | [...] | | | + +---+---+---+ + + + | Sex Assigned at | Date Recorded | | | | + + + | Not on file | | + + + Last Filed Vital Signs + + + + | Vital Sign | Reading | Time Taken | + + + + | Blood Pressure | 136/62 | 11/25/2015 5:29 PM PDT | + + + + | Pulse | 81 | 11/25/2015 5:29 PM PDT | + + + + | Temperature | 36.7 C (98.1 F) | 11/25/2015 2:22 PM PDT | + + + + | Respiratory Rate | 18 | 11/25/2015 5:29 PM PDT | + + + + | Oxygen Saturation | 96% | 11/25/2015 5:29 PM PDT | + + + + | Inhaled Oxygen | - | - | | Concentration | | | + + + + | Weight | 118.4 kg (261 lb) | 11/25/2015 2:22 PM PDT | + + + + | Height | 170.2 cm (5' 7.01") | 11/25/2015 2:22 PM PDT | + + + + | Body Mass Index | 40.87 | 11/25/2015 2:22 PM PDT | + + + + Plan of Treatment Not on file Results Not on filefrom Last 3 Months Insurance + +--------+ +------+-------+ + | Payer | Benefi | Subscriber | Type | Phone | Address | | | t Plan | ID | | | | | | / | | | | | | | Group | | | | | + +--------+ +------+-------+ + | MEDICAID | [place] | xxxxxxxx | | | [address] | | | | | | | [place], [place] | | | PACIFI | | | | [address] | | | [employer] | | | | | | | E | | | | | | | COMMUN | | | | | | | ITY | | | | | | | SOLUTI | | | | | | | ONS | | | | | + +--------+ +------+-------+ + + +--------+ +--------+ + + | Guarantor Name | Accoun | Relation to | Date | Phone | Billing Address | | | t Type | Patient | of | | | | | | | | | | + +--------+ +--------+ + + | ARIAN MEDINA | Person | Self | [birth year] | Home: | [address] | | | al/Khari | | 1970 | [phone] | [address] [place], | | | [place] | | | [phone] | [place] [address] | + +--------+ +--------+ + +
--- OUTSIDE RECORDS SUMMARY | 2017-07-15 16:06 | XMS | Encounter Summary ---
Demographics + + + | Address | [address] [place] [address] | | | [place] [address] | + + + | Home Phone | | + + + | Preferred Language | Unknown | + + + | Marital Status | Single | + + + | Baptism Affiliation | NRP | + + + [...] + | KRANTHI MONTEJO | ECON | [address] | | | | | [address], | | | | | [place] [address] | | + + + + + Care Team Providers + +------+ + | Care Powder Coater Name | Role | Phone | + [...] | | | | | [address] [place], | [place] | | | | | [place] [address] | [address] | | | | | [phone] | [phone] | | | | | | | [...]
--- OUTSIDE RECORDS SUMMARY | 2017-07-15 16:40 | XMS | Encounter Summary ---
Demographics + + + | Address | [address] [place] [address] | | | [place] [address] | + + + | Home Phone [...] Author + + + | Author | [facility] | + + + | Organization | [facility] | + + + | Address | Unknown | + + + | Phone | Unavailable | + + + Support + + + + + | Name | Relationship | Address | Phone | + + + + + | KRANTHI MONTEJO | ECON | [address] | | | | | [address], | | | | | [place] [address] | | + + + + + Care Team Providers + +------+ + | Care Design Center Consultant Name | Role | Phone | + [...] - Medication | | | | [address] [place], | [place], [place] | (freestyle test | | | | [place] [address] | [address] | strips) | | | | [phone] | [phone] | | | | | | | [...]
--- OUTSIDE RECORDS SUMMARY | 2017-07-15 16:40 | XMS | Encounter Summary ---
Demographics + + + | Address | [address] | | | [place] [address] | + + + | Home Phone [...] + | KRANTHI MONTEJO | ECON | [address] | | | | | [address], | | | | | [place] [address] | | + + + + + Care Team Providers + +------+ + | Care Armored Vehicle Officer Name | Role | Phone | + [...] | | | | | [address] [place], | [place] | | | | | [place] [address] | [address] | | | | | [phone] | [phone] | | | | | | | [...]
--- OUTSIDE RECORDS SUMMARY | 2017-07-15 16:41 | XMS | Clinical Summary ---
Demographics + + + | Address | [address] [address] | | | [place] [address] | + + + | Home Phone | | + + + | Preferred Language | Unknown | + + + | Marital Status | Single | + + + | Taoism Affiliation | Unknown | + + + | Race | Unknown | + + + | Ethnic Group | Unknown | + + + Author + + + | Author | [facility] | | | and [place] | + + + | Organization | [facility] | | | and [place] | [...] Team Providers + +------+ + | Care Voice Engineer Name | Role | Phone | [...] | [employer] | xxxxxxxx | [place] | [phone] | | | STATE | ID OUT [...] | Self | [birth year] | Home: | [address] | | | al/Fam | | 1969 | [phone] | [address] [place] | | | [place]ina | | | [phone] | [place] [address] | + +--------+ +--------+ + +
--- OUTSIDE RECORDS SUMMARY | 2017-07-15 16:41 | XMS | Encounter Summary ---
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
--- OUTSIDE RECORDS SUMMARY | 2017-07-15 16:41 | XMS | Encounter Summary ---
Demographics + + + | Address | [address] [place] [address] | | | [place] [address] | + + + | Home Phone | | + + + | Preferred Language | Unknown | + + + | Marital Status | Single | + + + | Spiritism Affiliation | NRP | + + + | Race | White | + + + | Ethnic Group | Not or | + + + Author + + + | Author | [facility] | + + + | Organization | [facility] | + + + | Address | Unknown | + + + | Phone | Unavailable | + + + Support + + + + + | Name | Relationship | Address | Phone | + + + + + | KRANTHI MONTEJO | ECON | [address] | | | | | [address], | | | | | [place] [address] | | + + + + + Care Team Providers + +------+ + | Care Mine Equipment Design Engineer Name | Role | Phone | [...] and | | | | [address] [place], | [place], [place] | cyclobenzaprine) | | | | [place] [address] | [address] | | | | | [phone] | | | | | | | [...]
--- OUTSIDE RECORDS SUMMARY | 2017-07-15 16:41 | XMS | Encounter Summary ---
Demographics + + + | Address | [address] [place] [address] | | | [place] [address] | + + + | Home Phone | | + + + | Preferred Language | Unknown | + + + | Marital Status | Single | + + + | Scientology Affiliation | NRP | + + + | Race | White | + + + | Ethnic Group | Not or | + + + Author + + + | Author | [facility] | + + + | Organization | [facility] | + + + | Address | Unknown | + + + | Phone | Unavailable | + + + Support + + + + + | Name | Relationship | Address | Phone | + + + + + | KRANTHI MONTEJO | ECON | [address] | | | | | [address], | | | | | [place] [address] | | + + + + + Care Team Providers + +------+ + | Care Die Maker Trim Name | Role | Phone | + [...] | | | | | [address] [place], | [place], [place] | | | | | [place] [address] | [address] | | | | | [phone] | [phone] | | | | | | | [...]
--- OUTSIDE RECORDS SUMMARY | 2017-07-15 16:41 | XMS | Encounter Summary ---
Demographics + + + | Address | [address] [address] | | | [place] [address] | + + + | Home Phone | | + + + | Preferred Language | Unknown | + + + | Marital Status | Single | + + + | Orthodoxy Affiliation | NRP | + + + | Race | White | + + + | Ethnic Group | Not or | + + + Author + + + | Author | [facility] | + + + | Organization | [facility] | + + + | Address | Unknown | + + + | Phone | Unavailable | + + + Support + + + + + | Name | Relationship | Address | Phone | + + + + + | KRANTHI MONTEJO | ECON | [address] | | | | | [address], | | | | | [place] [address] | | + + + + + Care Team Providers + +------+ + | Care Customer Service Representative Teller Name | Role | Phone | + [...] | | | | | [address] [place], | [place] | | | | | [place] [address] | [address] | | | | | [phone] | [phone] | | | | | | | [...]
--- OUTSIDE RECORDS SUMMARY | 2017-07-15 16:41 | XMS | Encounter Summary ---
Demographics + + + | Address | [address] [address] | | | [place] [address] | + + + | Home Phone | | + + + | Preferred Language | Unknown | + + + | Marital Status | Single | + + + | Pentecostalism Affiliation | NRP | + + + | Race | White | + + + | Ethnic Group | Not or | + + + Author + + + | Author | [facility] | + + + | Organization | [facility] | + + + | Address | Unknown | + + + | Phone | Unavailable | + + + Support + + + + + | Name | Relationship | Address | Phone | + + + + + | KRANTHI MONTEJO | ECON | [address] | | | | | [address], | | | | | [place] [address] | | + + + + + Care Team Providers + +------+ + | Care Disposal Operator Name | Role | Phone | [...] 2018 | | Medical Clinic | [address] | | | | | Internal Medicine | [place], [place] | | | | | [address] | [address] | | | | | [place], [place] | [phone] | | | | | [address] | | | | | | [phone] | | | +--------+ + + + [...]
--- OUTSIDE RECORDS SUMMARY | 2017-07-15 16:41 | XMS | Encounter Summary ---
Demographics + + + | Address | [address] [place] [address] | | | [place] [address] | + + + | Home Phone | | + + + | Preferred Language | Unknown | + + + | Marital Status | Single | + + + | Methodist Affiliation | NRP | + + + | Race | White | + + + | Ethnic Group | Not or | + + + Author + + + | Author | [facility] | + + + | Organization | [facility] | + + + | Address | Unknown | + + + | Phone | Unavailable | + + + Support + + + + + | Name | Relationship | Address | Phone | + + + + + | KRANTHI MONTEJO | ECON | [address] | | | | | [address], | | | | | [place] [address] | | + + + + + Care Team Providers + +------+ + | Care Retail Coverage Merchandiser Name | Role | Phone | + [...] | | | | | [address] [place], | [place] | | | | | [place] [address] | [address] | | | | | [phone] | [phone] | | | | | | | [...]
--- OUTSIDE RECORDS SUMMARY | 2017-07-15 16:41 | XMS | Encounter Summary ---
Demographics + + + | Address | [address] [address] | | | [place] [address] | + + + | Home Phone | | + + + | Preferred Language | Unknown | + + + | Marital Status | Single | + + + | Voodoo Affiliation | NRP | + + + [...] + | KRANTHI MONTEJO | ECON | [address] | | | | | [address], | | | | | [place] [address] | | + + + + + Care Team Providers + +------+ + | Care Solo Truck Driver Name | Role | Phone | + [...] | | Metabolism | Uncontrolled | [address] | | | | | type [address] | | | | | diabetes | [place], | [place], | | | | | mellitus | [place] | [place] [address] | | | | | without | [address] | Phone: | | | | | complication | Phone: | [phone] | | | | | , with | [phone] | Fax: | | | | | long-term | Fax: | [phone] | | | | | current use | [phone] | | | | | | of insulin | | | | | | | ([facility]) | | | | | | | [...] mellitus | | | | [address] [place], | [place], [place] | without | | | | [place] [address] | [address] | complication, with | | | | [phone] | [phone] | long-term current | | | | [...] Instructions: Thank you for meeting with the staff educator today. These are the healthy lifestyle goa [...] diabetes education visit. Carleen Alvarez, KRISTEN, CDE Business Development Engineer [facility] [place] [facility] 1. Uncontrolled type 2 diabetes mellitus without complication, with long-term current use o f insulin ([facility]) Lab work was completed today. We will [...] Instructions: Thank you for meeting with the staff educator today. These are the healthy lifestyle goa [...] diabetes education visit. Carleen Alvarez RD, CDE Business Development Engineer [facility] 1. Uncontrolled type 2 diabetes mellitus without [...] ti me 55 minutes. I, Alyssa Lujan AIRCRAFT INSTRUMENT MECHANIC, am functioning as a scribe for Vicente Ordoñez PA-C. I have reviewed and verified the above scribed note of my visit with this patient. Vicente Ordoñez PA-C [facility] [address] [place] [address] Carleen Coleman, RD - 04/22/2017 1:00 PM [...] June to January with her who do [employer]. She would like to sign up and [...] 50% of the time and documented content. Full Stack Engineer: Carleen Alvarez RD,CDE Patient's PCP: Vicente Ordoñez [...] | [facility] [address] [place] [address] [place], | | | [place] [address] | + + + in this encounter [...]
--- OUTSIDE RECORDS SUMMARY | 2017-07-15 16:41 | XMS | Encounter Summary ---
Demographics + + + | Address | [address] [address] | | | [place] [address] | + + + | Home Phone | | + + + | Preferred Language | Unknown | + + + | Marital Status | Single | + + + | Amish Affiliation | NRP | + + + | Race | White | + + + | Ethnic Group | Not or | + + + Author + + + | Author | [facility] | + + + | Organization | [facility] | + + + | Address | Unknown | + + + | Phone | Unavailable | + + + Support + + + + + | Name | Relationship | Address | Phone | + + + + + | KRANTHI MONTEJO | ECON | [address] | | | | | [address], | | | | | [place] [address] | | + + + + + Care Team Providers + +------+ + | Care Vacuum Cooker Operator Name | Role | Phone | [...] mg | | | | [address] [place], | [place], [place] | , [place] , | | | | [place] [address] | [address] | Gabapentin 300 mg) | | | | [phone] | [phone] | | | | | | | [...]
--- OUTSIDE RECORDS SUMMARY | 2017-07-15 16:41 | XMS | Encounter Summary ---
Demographics + + + | Address | [address] [place] [address] | | | [place] [address] | + + + | Home Phone | | + + + | Preferred Language | Unknown | + + + | Marital Status | Single | + + + | Restorationist Affiliation | NRP | + + + [...] + | KRANTHI MONTEJO | ECON | [address] | | | | | [address], | | | | | [place] [address] | | + + + + + Care Team Providers + +------+ + | Care Dinker Name | Role | Phone | + [...] | complication, with | | | | [address] | | long-term current | | | | [phone] | | use of insulin | | [...] | + + + | Blood | [address] [facility] | | | [place] [address] | + + + + + | [...] | + + + | Urine | [address] [facility] | | | [place] [address] | + + + + + | [...] | >60 | >60 mL/min | | [facility] | | | + +---------+ + | EGFR NON | >60 | >60 mL/min | | -[facility]UVIAN | | | + +---------+ + | ANION GAP | 11 (L) | 12 - 20 mmol/L | + +---------+ + | FASTING 8 HOURS [place] | No | | | MORE? | | | + +---------+ + + + + | Specimen | Performing Laboratory | + + + | Blood | [facility] | | | [place] [address] | + + + HEMOGLOBIN A1C, BLOOD [...] | + + + | Blood | [address] [facility] | | | [place] [address] | + + + + + | Narrative | + + | Glycohemoglobin Recommended Diabetic Ranges per DCCT & ADA: Normal | | Range: <6% Good | | Control: <7% Additional action | | suggested: >8% Non-Diabetic | | Ranges: 4-6% Signalling And Communications Engineer's Glycohemoglobin Diabetic | | Ranges: Normal Range: [...]
--- OUTSIDE RECORDS SUMMARY | 2017-07-15 16:41 | XMS | Encounter Summary ---
Demographics + + + | Address | [address] [address] | | | [place] [address] | + + + | Home Phone [...] + + + | Author | [facility] | + + + | Organization | [facility] | + + + | Address | Unknown | + + + | Phone | Unavailable | + + + Support + + + + + | Name | Relationship | Address | Phone | + + + + + | KRANTHI MONTEJO | ECON | [address] | | | | | [address], | | | | | [place] [address] | | + + + + + Care Team Providers + +------+ + | Care Draughtsman Name | Role | Phone | + [...] thigh | | | | [address] [place], | [place], [place] | (Primary Dx); | | | | [place] [address] | [address] | Shoulder | | | | [phone] | [phone] | impingement, right; | | | | [...] Musculoskeletal pain of right thigh (Sartorius = Manager Of Revenue muscle) Pain is muscular. I prescribed diclofenac [...] 2 hours she was told to by production operator provider. 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 I prescribed diclofenac [...] the growth of yeast. I, Alyssa Lujan [facility], am functioning as a scribe for Nichol Ordoñez PA-C. I have reviewed and verified the above scribed note of my visit with this patient. Nichol Ordoñez PA-C [facility] [address] [place] [address] in this encounter Plan of [...]
--- OUTSIDE RECORDS SUMMARY | 2017-07-15 16:41 | XMS | Encounter Summary ---
Demographics + + + | Address | [address] | | | [place] [address] | + + + | Home Phone | | + + + | Preferred Language | Unknown | + + + | Marital Status | Single | + + + | Mormon Affiliation | NRP | + + + [...] + | KRANTHI MONTEJO | ECON | [address] | | | | | [address], | | | | | [place] [address] | | + + + + + Care Team Providers + +------+ + | Care Tester Rocket Engine Name | Role | Phone | + [...] | | | | | [address] [place], | [place], [place] | | | | | [place] [address] | [address] | | | | | [phone] | | | | | | | [...]
--- OUTSIDE RECORDS SUMMARY | 2017-07-15 16:41 | XMS | Encounter Summary ---
Demographics + + + | Address | [address] [place] [address] | | | [place] [address] | + + + | Home Phone | | + + + | Preferred Language | Unknown | + + + | Marital Status | Single | + + + | Muslim Affiliation | NRP | + + + | Race | White | + + + | Ethnic Group | Not or | + + + Author + + + | Author | [facility] | + + + | Organization | [facility] | + + + | Address | Unknown | + + + | Phone | Unavailable | + + + Support + + + + + | Name | Relationship | Address | Phone | + + + + + | KRANTHI MONTEJO | ECON | [address] | | | | | [address], | | | | | [place] [address] | | + + + + + Care Team Providers + +------+ + | Care Graduate Student Instructor Name | Role | Phone | + [...] | | 2017 | | Department at [facility] | [place] [address] | | | | | Hospital [address] | [place], [place] | | | | | Street The | [address] | | | | | [place], [place] | [phone] | | | | | [address] | | | | | | [phone] | | | +--------+ + + + [...] Laboratory | + + + | | [facility] DEPARTMENT OF RADIOLOGY | + + + + + | Narrative | + + | [address] | | [place] [address] | | [phone] Name: | | STEPHANY SANCHEZ Phys: LEXY HALEY : | | 1970 Sex: F CSN: [id number] MR# [id number] | | Exam Date: 06/04/2017 EXAM: US [...] MD Transcribed Date/Time: 06/04/2017 13:54 | | Specialized Developer: FLUENCY | + + + + | Procedure Note | + + | Interface, Radiology Results - 06/04/2017 1:59 PM PST [address] | | [place] [address] | | Name: STEPHANY SANCHEZ Phys: LEXY HALEY : 1970 Sex: F | | CSN: [id number] MR# [id number] Exam Date: 06/04/2017 EXAM:US DOPPLER LOWER | [...] | | |Transcribed Date/Time: 06/04/2017 13:54 | |Specialized Developer: FLUENCY | | | | | | | + + ED INFORMATION EXCHANGE (06/04/2017 12:06 PM) + + + + | Component | Value | Ref Range | + + + + | SWATI PID | [id number] ([id number]) | | + + + + + + + | Specimen | Performing Laboratory | + + + | | [facility] [employer] [address] | | | [address] [place] [address] | + + + + + | Narrative | + + | Guidelines Source: [facility] Guidelines Date: 12/19/2015 Care | | Recommendation: - This patient has been identified as having >5 ED | | visits within the past year at EDs in [facility]. - Recommend no routine | | [...] Substances (E-104.00). - Please | | utilize [facility] website to view prescription acquisition. - Restrict use of | | opioids in ED to only obvious trauma or severe medical issues - Please behavioral school counselors | | the patient about appropriate use of health care services as warranted - | | Encourage patient to establish and then seek care from their community provider to | | improve continuity of care. 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 | | [place] Emergency [address]. POSS BLOOD CLOT TO R LEG, SWOLLEN/PAINFUL 03/13/2017 | | 13:30 [facility]. | | [place] Emergency -Periapical abscess without sinus | | | | -Nicotine | | dependence, cigarettes, uncomplicated | | | | -OTHER | | SPECIFIED DISORDERS OF TEETH AND SUPPORTING | | | | STRUCTURES | | | | -Dental caries, | | unspecified ED VISIT COUNT (12 MO.) Visits Location | | ------ --------- 1 [facility]. 2 [facility] | | [facility]. [address] [facility] 1 [facility] | | [facility] 1 [facility] 1 [facility] | | [facility] 1 [facility] 8 Total Note: Visits | | indicate total known visits. | | CARE | | PROVIDERS | | Name | | Phone Type Service | | Dates | | ---- | | | | ----- ---- LEGACY | | [facility] | | Unknown Primary Care Unknown - Current FIOR Dale | | ARREOLA at [facility] | | GROUP Unknown Primary | | Care Unknown - Current FIOR [facility]REOLA at [facility] | | [place] [id number] Primary Care 01/11/2015 - | | Current [facility] | | [phone] Primary Care 08/22/2011 | | - Current RENNY MARI at [facility] PHYSICIAN | | SERVICES [phone] Specialist 09/11/2013 - | | Current NONSTAFF | | PHYSICIAN | | Unknown Primary Care Unknown - Current | + + in this encounter Visit Diagnoses + + | Diagnosis | + + | Musculoskeletal pain of right thigh - Primary | + +
--- OUTSIDE RECORDS SUMMARY | 2017-07-15 16:41 | XMS | Clinical Summary ---
Demographics + + + | Address | [address] | | | [place] [address] | + + + | Home Phone | | + + + | Preferred Language | Unknown | + + + | Marital Status | Single | + + + | Hinduism Affiliation | Unknown | + + + | Race | Unknown | + + + | Ethnic Group | Unknown | + + + Author + + + | Author | [email or web address] | + + + | Organization | [facility] [employer] | + + + | Address | Unknown | + + + | Phone | Unavailable | + + + Support + + +---------+ + | Name | Relationship | Address | Phone | + + +---------+ + | Hardeep Glass | ECON | Unknown | | + + +---------+ + Care Team Providers + +------+ + | Care Merchandising Intern Name | Role | Phone | + +------+ + | [facility] | PP | Unavailable | | Community [...] | | | | | | [place], [place] | | | [place]IF[place] | | | | [address] | | | [facility] | | | [...] | Self | [birth year] | Home: | [address] | | | al/Khari | | 1970 | [phone] | [address] [place], | | | [place] | | | [phone] | [place] [address] | + +--------+ +--------+ + +
--- OUTSIDE RECORDS SUMMARY | 2017-07-15 16:41 | XMS | Encounter Summary ---
Demographics + + + | Address | [address] | | | [place] [address] | + + + | Home Phone | | + + + | Preferred Language | Unknown | + + + | Marital Status | Single | + + + | Congregational Affiliation | NRP | + + + | Race | White | + + + | Ethnic Group | Not or | + + + Author + + + | Author | [facility] | + + + | Organization | [facility] | + + + | Address | Unknown | + + + | Phone | Unavailable | + + + Support + + + + + | Name | Relationship | Address | Phone | + + + + + | KRANTHI MONTEJO | ECON | [address] | | | | | [address], | | | | | [place] [address] | | + + + + + Care Team Providers + +------+ + | Care Soybean Specialties Cook Name | Role | Phone | + [...] | | | | | [address] [place], | [place] | | | | | [place] [address] | [address] | | | | | [phone] | [phone] | | | | | | | [...]
--- OUTSIDE RECORDS SUMMARY | 2017-07-15 16:41 | XMS | Encounter Summary ---
Demographics + + + | Address | [address] [place] [address] | | | [place] [address] | + + + | Home Phone | | + + + | Preferred Language | Unknown | + + + | Marital Status | Single | + + + | Zoroastrian Affiliation | NRP | + + + | Race | White | + + + | Ethnic Group | Not or | + + + Author + + + | Author | [facility] | + + + | Organization | [facility] | + + + | Address | Unknown | + + + | Phone | Unavailable | + + + Support + + + + + | Name | Relationship | Address | Phone | + + + + + | KRANTHI MONTEJO | ECON | [address] | | | | | [address], | | | | | [place] [address] | | + + + + + Care Team Providers + +------+ + | Care Cigarette And Filter Chief Inspector Name | Role | Phone | [...] | | | | | [address] [place], | [place], [place] | | | | | [place] [address] | [address] | | | | | [phone] | [phone] | | | | | | | [...]
--- OUTSIDE RECORDS SUMMARY | 2017-07-15 16:41 | XMS | Encounter Summary ---
Demographics + + + | Address | [address] [address] | | | [place] [address] | + + + | Home Phone | | + + + | Preferred Language | Unknown | + + + | Marital Status | Single | + + + | Alevism Affiliation | NRP | + + + | Race | White | + + + | Ethnic Group | Not or | + + + Author + + + | Author | [facility] | + + + | Organization | [facility] | + + + | Address | Unknown | + + + | Phone | Unavailable | + + + Support + + + + + | Name | Relationship | Address | Phone | + + + + + | KRANTHI MONTEJO | ECON | [address] | | | | | [address], | | | | | [place] [address] | | + + + + + Care Team Providers + +------+ + | Care Assistant Director Of Security Name | Role | Phone | + [...] | | | | | [address] [place], | [place], [place] | | | | | [place] [address] | [address] | | | | | [phone] | [phone] | | | | | | | [...] | + + + | Swab | [facility] [address] [place] [address] [place], | | | [place] [address] | + + + in this encounter Visit Diagnoses + + | Diagnosis | + + | Flu-like symptoms | + + | Influenza with other respiratory manifestations | + +"
--- OUTSIDE RECORDS SUMMARY | 2017-07-15 16:41 | XMS | Encounter Summary ---
Demographics + + + | Address | [address] [address] | | | [place] [address] | + + + | Home Phone | | + + + | Preferred Language | Unknown | + + + | Marital Status | Single | + + + | Sikhism Affiliation | NRP | + + + [...] + | KRANTHI MONTEJO | ECON | [address] | | | | | [address], | | | | | [place] [address] | | + + + + + Care Team Providers + +------+ + | Care Enamel Buffer Name | Role | Phone | + [...] | | | | | [address] [place], | [place] | | | | | [place] [address] | [address] | | | | | [phone] | [phone] | | | | | | | [...]
[2017-07-15] MEDS ORDERED: ZITHROMAX250 MG PO (18:24)
[2017-07-15] MEDS ORDERED: METHYLPREDNISOLO4 M1 PO (18:24)
== END 2017-07-15 18:37 | disposition home or self-care (01) ==
LOC: ED 15:40
DX: J44.1 Chronic obstructive pulmonary disease with (acute) exacerbation (principal); J06.9 Acute upper respiratory infection, unspecified; E11.9 Type 2 diabetes mellitus without complications; F32.9 Major depressive disorder, single episode, unspecified; F43.10 Post-traumatic stress disorder, unspecified; Z79.899 Other long term (current) drug therapy; Z79.82 Long term (current) use of aspirin; Z79.84 Long term (current) use of oral hypoglycemic drugs; Z79.4 Long term (current) use of insulin
CPT/HCPCS: 80048; 85025; 87502; 96374; 96375; 99283; J1170; J2405; J2930; J7030